=== PATIENT | male | born 1965 | race Caucasian/White ===

== ENCOUNTER → 2016-09-23 | Outpatient (CLI) | payer OTHER ==
--- NOTE | 2016-09-23 17:07 | XR ---
Lumbar spine with flexion-extension views 5 views of the lumbar spine Comparison to prior exam 30 July 2014 There is multilevel spondylosis. Loss of disc height present L3-4, L2-3 with associated spondylosis. Lumbar vertebral bodies show preserved height and alignment. Sclerosis present in the posterior eleme nts. No significant listhesis on flexion and extension views. Vascular calcifications present within the aorta. IMPRESSION: Degenerative disc disease and facet arthropathy.
== END | disposition home or self-care (01) ==
LOC: RADXRMAIN 15:26
PROVIDERS: ATTEND Psychiatry & Neurology Pain Medicine
DX: M51.36 Other intervertebral disc degeneration, lumbar region (principal); M46.86 Other specified inflammatory spondylopathies, lumbar region
CPT/HCPCS: 72114

== ENCOUNTER → 2016-09-23 | Outpatient (CLI) | payer OTHER ==
--- NOTE | 2016-09-24 10:39 | MR ---
EXAMINATION TYPE: MR lumbar spine wo con DATE OF EXAM: 09/23/2016 9:33 PM COMPARISON: NONE HISTORY: LBP, numbness/pain down rt leg x 4 years, no trauma/surgery TECHNIQUE: Multiplanar, multisequence images of the lumbar spine were acquired. L1-L2: Normal disc appearance without desiccation. No herniation, protrusion or disc bulging. No ca nal stenosis is present. Foramina are patent bilaterally. L2-L3: Circumferential posterior extension of endplate disc complex extends to cause some minimal for aminal encroachment, there is anterior mass effect on the thecal sac, only mild central stenosis. L3-L4: Posterior extension of endplate disc complex results in some mild to moderate central canal st enosis, circumferential extension of endplate disc complex encroaches on the neural foramina greater on the right likely contributed by scoliosis. There is facet arthropathy change. L4-L5: Broad-based posterior disc bulge causes anterior mass effect on the thecal sac. Circumferentia l extension of endplate disc complex encroaches somewhat on the foramina. There is some mild facet ar thropathy. No central stenosis. L5-S1: There is a broad-based posterior disc bulge causing contact the anterior thecal sac, circumfer ential extension of endplate disc complex encroaches mildly on the foramina. No significant central s tenosis Lumbar segments are intact. No paraspinal masses are identified. Conus medullaris has a normal appe arance. Lumbar vertebral bodies show preserved height and alignment. Loss of disc height and signal p resent at L2-3, L3-4, there is endplate discogenic marrow signal change, spondylosis. There is a spin al curvature. Minute cortical cyst associated with the left kidney. IMPRESSION: Spinal curvature, degenerative disc disease and facet arthropathy as described. Spinal stenosis great est at L3-4. Correlate with plain film prior to any intervention
== END | disposition home or self-care (01) ==
LOC: RADMRIMAIN 20:37
PROVIDERS: ATTEND Psychiatry & Neurology Pain Medicine
DX: M48.06 Spinal stenosis, lumbar region (principal); M51.36 Other intervertebral disc degeneration, lumbar region; M46.96 Unspecified inflammatory spondylopathy, lumbar region; M43.8X6 Other specified deforming dorsopathies, lumbar region
CPT/HCPCS: 72114; 72148

== ENCOUNTER → 2021-03-13 | Outpatient (CLI) | payer OTHER | END | disposition home or self-care (01) | LOC: LABPAT 10:37 | PROVIDERS: ATTEND Orthopaedic Surgery | DX: Z53.9 Procedure and treatment not carried out, unspecified reason (principal) ==

== ENCOUNTER → 2021-03-17 | Outpatient (CLI) | payer OTHER ==
[2021-03-17 10:52] LABS: Basophils # (A) 0.1 k/uL (0-0.2); Basophils % (A) 1 %; Eosinophils # (A) 0.4 k/uL (0-0.7); Eosinophils % (A) 3 %; HCT 49.1 % (39.0-53.0); Lymphocytes # (A) 3.5 k/uL (1.0-4.8); Lymphocytes % (A) 28 %; MCH 31.5 pg (25.0-35.0); MCHC 32.5 g/dL (31.0-37.0); MCV 96.9 fL (80.0-100.0); Mean Platelet Volume 7.2; Monocytes # (A) 0.5 k/uL (0-1.0); Monocytes % (A) 4 %; Neutrophils % (A) 64 %; Platelet Count 316 k/uL (150-450); RBC 5.07 m/uL (4.30-5.90); RDW 13.4 % (11.5-15.5); WBC 12.6 k/uL (3.8-10.6)
[2021-03-17 11:02] LABS: Potassium 4.4 mmol/L (3.5-5.1)
[2021-03-17 11:13] LABS: INR 0.9 (<1.2); Prothrombin Time 9.5 sec (9.0-12.0)
== END ==
LOC: PAT 09:54
PROVIDERS: ATTEND Orthopaedic Surgery
DX: M48.061 Spinal stenosis, lumbar region without neurogenic claudication (principal); M47.816 Spondylosis without myelopathy or radiculopathy, lumbar region; F17.200 Nicotine dependence, unspecified, uncomplicated
CPT/HCPCS: 80051; 85025; 85610

== ENCOUNTER 2021-03-18 05:48 | Inpatient (IN) | payer OTHER ==
[2021-03-13 12:02] VITALS: BMI 27.6
[~2021-03-18 05:48] MED LIST: ACETAMINOPHEN TAB 500 MG TAB PO PRN; DEXAMETHASONE SOD PHOSPHATE 4 MG/ML 1 ML VIAL IV ONE; GABAPENTIN 300 MG CAP PO PRN; ONDANSETRON 4 MG/2 ML VIAL IVP ONE; ONDANSETRON 4 MG/2 ML VIAL IVP PRN; TRANEXAMIC ACID 1,000 MG in SODIUM CHLORIDE 0.9% 100 ML IVPB PRN
--- NOTE | 2021-03-18 06:00 | P.HPOR ---
History of Present Illness H&P Date: 03/03/21 Chief Complaint: Low back pain, LE pain and weakness HISTORY: Xrays No new xrays taken today Trauma or injury No Work-Related No Pain description aching, sharp. Location posterior diffuse Activity Modification yes , unable to stand or weightbear for extended periods of time. Hand Dominance right DOI: Acute on chronic, no injury or trauma. DOS: None TREATMENTS COMPLETED: 6 weeks of PT completed? Yes How many sessions? 8 Did it help? No Physician directed home exercise completed? yes , did not see improvements regarding his symptoms. Medications yes List: [place], Flexeril without improvements. Alternative interventions Chiropractic?: No Brace: No Injections Yes (lumbar DAVID) How many? 2 Did they help? No RFA: No SUBJECTIVE: Today Mr. Jane presents to the office for a pre-operative evaluation to review his physical exam and go over the proposed procedure. Regarding his symptoms, he notes that they have not changed since the time of the last appointment. His symptoms are quite severe and limiting his daily functionality. He presents to the office without the use of any ambulatory aides. HPI: Mr. Jane was last seen on 01/31/2021 regarding his lumbar back. Since the time of his previous appointment on 01/03/2021 the patient noted that he has done PT and home exercises without improvement to his symptoms. He stated that his symptoms have not improved since his last appointment. Along with this he stated that he has severe sleep disturbances due to the severity of his symptoms. The patient has failed all conservative treatments at this time and would like to discuss scheduling the surgery discussed at the prior appointment. Patient notes that the has stopped smoking after his last appointment. Previously, Mr. Jane was last seen on 01/03/2021 regarding his low back. He noted that there was no prior injury to indicate an exact onset of his pain, rather it has gradually worsened over the last 17 years. His pain is primarily located along the right lateral side of his lower back and does note pain and numbness radiating down into his right lower extremity. His pain is quite severe and he is unable to completely many of his daily activities. Patient has seen Dr. Marin for his low back pain previously and has done several intralaminar injections in both the lumbar back and cervical neck regions. These injections, he notes, have waned in effectiveness over time and the patient reports that they are no longer effective. Of note the patient does take Motrin for pain management with no improvement to his symptoms. Patient does report that he is a pack a day smoker. Otherwise he denies having bowel issues or incontinence. He is otherwise doing well. Along with the patients low back pain he notes that he does have significant neck pain as well. This has been ongoing for as long as the back pain but he does not that it is not as severe. Regardless, this pain has aslo been managed previously by Dr. Alonso and the patient does report having injections previously. Patient notes difficulty with sleeping due to his neck pain. Patient doesn't report any pain, numbness, or tingling radiating down into the upper extremities bilaterally. The patients' past social, medical, family, surgical history, as well as review of systems, have been reviewed. Please refer to the Neurosurgery History and Physical form that has been scanned in to our electronic medical record system. Past Medical History Past Medical History: GERD/Reflux, Hyperlipidemia, Hypertension, Seizure Disorder Additional Past Medical History / Comment(s): states "has been off b/p,cholesterol,dilantin medication for a year",last seizure "3 or 5 years ago" History of Any Multi-Drug Resistant Organisms: None Reported Additional Past Surgical History / Comment(s): knee surgery Past Anesthesia/Blood Transfusion Reactions: No Reported Reaction Smoking Status: Former smoker - Past Family History Mother Family Medical History: No Reported History Father Family Medical History: Cancer Additional Family Medical History / Comment(s): lung CA Medications and Allergies Home Medications Medication Instructions Recorded Confirmed Type Acetaminophen [Tylenol Extra 500 - 1,000 mg PO Q6H PRN 03/13/21 03/13/21 History Strength] Allergies Allergy/AdvReac Type Severity Reaction Status Date / Time No Known Allergies Allergy Verified 03/13/21 11:54 Physical Examination Osteopathic Statement: *. No significant issues noted on an osteopathic structural exam other than those noted in the History and Physical/Consult. PHYSICAL EXAMINATION: General: Awake, alert, appropriate for age, in no acute distress. HEENT: No unusual neck masses around region of lateral neck triangle, thyroid, supraclavicular groove Heart: Regular rate and rhythm, normal S1, S2 and no murmur/gallop. Lungs: Clear to auscultation bilaterally with no use of accessory muscles. Extremities: Skin warm and dry without acute lesions, coloration, temperature, skin intact, no tenderness or erythema Integument: Hairy patches: Absent Dorsal skin dimples: Absent Cafe au lait spots: Absent Surgical incisions: No Palpation: Please see Pain drawing on Intake sheet for further detail. Midline spinal tenderness: No E6 Paralumbar tenderness: yes E6 Parathoracic tenderness: yes E6 Buttocks tenderness: yes E6 Special findings: No POSTURAL and MUSCULO-SKELETAL EVALUATION: Coronal Balance: NEUTRAL Recumbent testing: Patient is able to lay flat on back Sagittal Balance: Positive Shoulder Profile: LEVEL Pelvic Girdle: LEVEL Neck ROM: UNRESTRICTED Lumbar ROM: UNRESTRICTED Shoulder ROM: Symmetrical Hip ROM: Symmetrical Knee ROM: Symmetrical Hands: Normal appearance, symmetrical Feet: Normal appearance, Symmetrical VASCULAR STATUS : LEFT RIGHT Wrist Pulses INTACT INTACT Pedal Pulses (Dors. pedis & post.tibialis) INTACT INTACT Color NORMAL NORMAL Edema Absent Absent NEUROLOGIC EXAMINATION: Mental Status:Awake and alert, fully oriented, with normal attention, concentration and memory, and fluent, appropriate speech. Cranial Nerves: I: Olfactory not tested. II: Visual acuity normal, no visual field deficit noted with confrontation. III,IV: Normal pupillary reflexes & intact extraocular movements without nystagmus. V,: Intact symmetrical facial sensation. VII: Intact symmetrical facial motor movement VIII: Hearing intact. IX,X: Intact gag, swallow, & normal voice. XI: Sternocleidomastoid, trapezius function intact. XII: Tongue midline with normal movements. L'hermitte's Sign: Negative / absent Spurling'Sign: Absent bilaterally. Cubital percussion test: Absent bilaterally. Basil-Tinel sign - Carpal region: Absent bilaterally. Straight Leg Raising: Absent bilaterally. Crossed straight leg raise: negative O8 MOTOR EXAM (0-5/5, N/T) STRENGTH RIGHT LEFT Shoulder Abd (not part of the MANAV score) 5 5 Elbow Flexors 5 5 Elbow Extensor 5 5 Wrist Dorsiflexors 5 5 Finger Abductor 5 5 Party Plan Selling Distributor 5 5 Hip Flexor (Not part of MANAV Motor score) 5 5 Knee Flexor 4+ 4+ Knee Extensor 4+ 5 Ankle dorsiflexor 5 5 Ankle plantarflexion 5 4+ Extensor hallucis 5 5 REFLEXES(0-4/2, NT) RIGHT LEFT Upper Extremities 2 2 Lower Extremities 2 2 Pathological Reflexes RIGHT LEFT Allan's Absent Absent Clonus Absent Absent Babinski Absent Absent # Indicates mechanical impairment Muscle appearance: Symmetrical, without signs of atrophy or dystrophy. Rectal Tone:Deferred Sensory system (0-4, N/T) Test type RU LOIS RL LL Joint-Position 2 2 2 2 Vibration 2 2 2 2 Pain & LT sense 2 2 2 2 Dermatomal Deficit: None None None None Gait and Functional Evaluation: Ambulatory aids: Independent Romberg's test: Intact bilaterally Toe heel walk / heel-toe walk intact while maintaining satisfactory balance? yes Squatting/straightening w/o assistance to a min of 60 degree knee flexion? yes Single leg stance: intact Trendelenburg sign negative bilaterally Hand and finger dexterity intact bilaterally? yes Disdiadochokinesis examination negative bilaterally? yes Results RADIOGRAPHIC STUDIES: XRay taken on 12/20/20 of Lumbar was reviewed by Dr. Marcus and indicates: multiple views of the lumbar spine reviewed demonstrate: - L2 through L3 4 spondylosis. L3 4 spondylosis is worse with disc desiccation retrolisthesis. There is facet arthrosis which is noted at these levels as well. The remaining disks and vertebral body heights are remaining maintained. Overall alignment is fairly well maintained except for these levels were there is flattening of the normal lumbar lordosis. Coronal balance is maintained. MRI L spine - There is L2 through L3 4 spondylosis with L3 for motor can play changes. Spondylosis at L3-L4 severe with severe disc collapse and retrolisthesis. There is moderate to severe stenosis at L3 4. There is moderate stenosis centrally as well as foraminally at L2-3. This is both present at these levels secondary to facet hypertrophy ligamental hypertrophy disc desiccation as well as spondylosis. No other fracture or dislocation is noted. Overall alignment is as mentioned above MRI of the cervical spine is reviewed as well: - There is severe cervical spondylosis from C4 to C6. There is retrolisthesis of C5 on C6 with severe stenosis in this area. The patient does have upper extremity radiculopathy however no myelomalacia is noted at this time. There is no other fracture dislocation occipital cervical C1 2 joints appear stable at this time. There is another disc bulge noted at that C3-C4 as well as C4-C5 however this does not cause significant stenosis. No other fracture dislocation or lesion noted - Labs Labs: Microbiology - Last 24 Hours (Table) 03/13/21 11:13 Nasal Screen MRSA/MSSA - Final Nasal Swab Staphylococcus aureus Assessment and Plan Assessment: 1. L2-L4 Spondylosis 2.L2-L4 Stenosis 3. C5-C7 Stenosis/Spondylosis 4. Lower extremity radiculopathy with weakness 5. Upper extremity radiculopathy bilateral 6. Neurogenic claudication Plan: Surgical Procedure Risk Review Abel Jane is a 55 year old male presenting for evaluation of gradual and continued onset of low back pain and lower extremity pain difficulty with ambulation weakness. It was my pleasure to have seen and examined Mr. Jane. In our visit today we have had a chance to go over subjective complaints, physical examination findings and treatments, including the natural course history without intervention and various interventional options. The imaging demonstrates severe spondylosis L2 to L4 with disc collapse as well as stenosis . On physical exam, Mr. Jane demonstrates difficulty with ambulation weakness in his lower extremities radiculopathy and tensioning signs . I explained to the patient that as his condition progresses it could cause continued symptoms worsening her progressive symptoms as well as continued pain . At this time, based on the patients imaging and physical exam, I recommend surgery in the form or a: L2 to L5 laminectomy with L3-L4 fusion . I discussed the risk and benefits of this procedure at length with Mr. Jane. The patient agreed to consider pursuing the procedure mentioned above. Plan: 1. L2 to L5 laminectomy with L3 to L4 fusion 2. Follow up with PCP for surgical clearance 3. Review of surgical risks and benefits as well as an educational packet on the proposed surgical procedure. Risks: All surgical procedures come with inherent risks, including those related to positioning, anesthesia, intraoperative findings, and postoperative complications. It is important to understand that surgery does not come with any guarantee of a successful outcome as complications and adverse events are always possible. The patient was given a handout in office today discussing the surgical procedure and risks associated with the intervention, both of which were discussed with the patient. These risks include but are not limited to the following: ? Experiencing same, different or even worse symptoms in back, neck, arms, or legs compared to before surgery. ? Requiring further surgery or other forms of treatment presently or at some time in the future at same or other levels of the intended spine surgery. ? On an extreme but fortunately relatively rare basis severe complication such as blindness, stroke, heart attack, temporary and/or permanent nerve injury, paralysis, coma, or may occur, sometimes without known explanation. ? Surgical complications may include but are not limited to risk of infection, fluid accumulation in the surgical dissection site, including a seroma or hematoma, that requires additional surgery, wound drainage, bleeding, new numbness or weakness, vision changes/loss, spinal fluid leakage, non-healing and/or infected incision, headaches, difficulty or inability to swallow, hoarseness, hemopneumothorax, pneumothorax, impotence, retrograde ejaculation, vaginal dryness; injury to nerves, spinal cord, blood vessels, lymphatics or other vital organs (i.e., bowel injury, injury to the great vessels); heterotopic bone formation; complications related to the hardware such as screws, rods, cages including misplaced hardware, device failure, instrumenta tion at the wrong spine level, hardware fracture/breakage, or hardware loosening; vertebral failure of the spinal column above or below the newly placed hardware; retained surgical instrumentations or devices and the need for further surgery. ? Medical risks of the planned spine surgery include but are not limited to generalized Infections to the whole body or local areas outside of the surgical site (sepsis), heart attack, bleeding, anaphylaxis, meningitis, seizure, epilepsy, hearing loss, burn hull, laceration of the head or other areas of the body, bruising, hypersensitivity of the skin, bladder over distension; allergic reaction; shoulder injury related to positioning; fat, blood and air clots to other areas of the body like heart, lungs, brain; failure of internal organs s uch as lungs, kidneys, liver and excessive bleeding. If blood transfusions are necessary, note that transfusions may cause intolerance reactions such as anaphylaxis or other complex reactions. Despite best efforts, the results of spine surgery might not heal in terms of bone, soft tissues such as skin, fascia, ligaments, and joints. Additionally, in order to achieve best possible results, spine surgery may be carried out beyond the initially planned levels and involve decompression, fusion including insertion of hardware at levels other than the original intended area of surgical interest change some portions of the procedure in order to ensure the best possible outcomes. With spine surgery and spinal fusion, there are different off label uses of instrumentation (devices, implants and hardware) as well as biological substances (bone morphogenic proteins, demineralized bone matrix) as well as using extra bone from allograft sources (i.e. cadaver bone) or autograft (iliac crest bone, ribs, or the spine itself). The patient has been given information about these practices and their inherent risks and benefits. [facility] Physician Assistants are medically trained surgical providers who function in the outpatient, inpatient, and operating room setting under the direct supervision of the attending surgeon.They assist in the operating room with direct supervision of the attending surgeons. The patient has had a chance to review all the listed information, has been given print outs detailing this information, and has had all his/her questions answered to their satisfaction. It was my pleasure to have seen and examined Mr. Jane. In our visit today we have had a chance to go over my understanding of our patient's current condition, the natural course history without intervention and various interventional options. Questions were invited and answered, and the patient wishes to proceed as outlined above. I have seen and examined the patient for 25 minutes and we have spent more than 50% of the time in repeat and detailed counseling about the patient's condition, its natural course history with out and as much as can be predicted with surgery and re-review of various surgical treatment options. In conclusion,Mr. Jane and his spouse/partner requested we proceed with the above suggested surgery and are willing to accept risks and limitations of the suggested surgery as nature of the disease process and our best attempts at treatment for the condition. In our visit today Mr. Jane and I have had a chance to go over my understandi ng of the patient's current condition, the natural course history without intervention and various interventional options. Questions were invited and answered, and the patient wishes to proceed as outlined above. I will be sure to keep you updated afterMr. Jane returns here for further follow-up. Thank you again for your referral. Please do not hesitate to contact me if you have any further questions. Signed and authenticated by: Vishnu Singh [facility] [address] [place] [address] [place] [address] [place] [address] This message is confidential, intended only for the named recipient(s) and may contain information that is privileged or exempt from disclosure under applicable law. If you are not the intended recipient(s), you are notified that the dissemination, distribution or copying of this information is strictly prohibited. If you received this message in error, please notify the sender then delete this message. Patient verbalizes understanding of the information discussed.
[2021-03-18] MEDS ORDERED: LACTATED RINGERS 1,000 ML IV ONE ×3 (06:49→11:01)
[2021-03-18] MEDS: LACTATED RINGERS 1,000 ML IV SCH ×2 (06:49→17:48)
[2021-03-18] MEDS ORDERED: HYDROmorphone 0.5 MG/0.5 ML SYRINGE IVP PRN ×2 (07:00→12:25)
[2021-03-18] MEDS ORDERED: fentaNYL (PF) 50 MCG/ML 2 ML AMP ONE (07:33)
[2021-03-18] MEDS ORDERED: MIDAZOLAM 2 MG/2 ML VIAL ONE (07:33)
[2021-03-18] MEDS ORDERED: TRANEXAMIC ACID 1,000 MG/10 ML VIAL ONE (07:33)
[2021-03-18] MEDS ORDERED: NEOSTIGMINE 1 MG/ML 10 ML VIAL ONE (07:33)
[2021-03-18] MEDS ORDERED: LIDOCAINE 1% INJ 10MG/ML (20 ML MDV) ONE (07:33)
[2021-03-18] MEDS ORDERED: ceFAZolin 1,000 MG VIAL ONE (07:33)
[2021-03-18] MEDS ORDERED: GLYCOPYRROLATE 0.2 MG/ML 2 ML VIAL ONE (07:33)
[2021-03-18] MEDS ORDERED: PHENYLEPHRINE-0.9% NACL SYG 1,000 MCG/10 ML SYRINGE ONE (07:33)
[2021-03-18] MEDS ORDERED: SODIUM CHLORIDE 0.9% 100 ML BAG ONE ×2 (07:33)
[2021-03-18] MEDS ORDERED: ROCURONIUM 10 MG/ML (5 ML VIAL) IV ONE (07:33)
[2021-03-18] MEDS ORDERED: PROPOFOL 10 MG/ML 20 ML VIAL IV ONE (07:33)
[2021-03-18] MEDS ORDERED: SUCCINYLCHOLINE CHLORIDE 100 MG/5 ML SYR IV ONE (07:33)
[2021-03-18] MEDS ORDERED: GELATIN SPONGE,ABSORB (SMALL) 1 EACH SPONGE MISCELLANE ONE (08:19)
[2021-03-18] MEDS ORDERED: THROMBIN (BOVINE) 5,000 UNIT VIAL TOPICAL ONE (08:20)
[2021-03-18] MEDS ORDERED: BUPIVACAINE (PF) 0.25% 30 ML VIAL SQ ONE (08:20)
[2021-03-18] MEDS ORDERED: VANCOMYCIN 1,000 MG VIAL MISCELLANE ONE (11:36)
--- NOTE | 2021-03-18 12:08 | XR ---
Fluoroscopy HISTORY: MR fusion 42 seconds fluoroscopy time supplied to the referring clinician. 13 intraoperativ e C-arm images document the procedure. See dictated report from orthopedic surgery.
[2021-03-18] MEDS ORDERED: NA PHOS,M-B/NA PHOS,DI-BA 133 ML ENEMA RECTAL PRN (12:25)
[2021-03-18] MEDS ORDERED: SENNOSIDES-DOCUSATE SODIUM 1 EACH TAB PO PRN (12:25)
[2021-03-18] MEDS ORDERED: ONDANSETRON 4 MG/2 ML VIAL IVP PRN (12:25)
[2021-03-18] MEDS ORDERED: MAGNESIUM HYDROXIDE 2,400 MG/10 ML CUP PO PRN (12:25)
--- NOTE | 2021-03-18 12:31 | P.PN ---
Progress Note - Text Progress Note Date: 03/18/21 Brief Post Op: Surgeon: Benjamin Assist: Branch Pre op dx; severe stenosis L2 L5 with L3-L4 spondylosis and collapse Post op dx: Same Procedure: L2 to L5 decompressive laminectomy L3-L4 posterior lateral and interbody fusion Anesthesia: GETA EBL: 350 Ml Fluids: 1500 UO: 400 Dispo: Stable to PACU Post op Plan: Post operative noncontrasted CT scan Encourage ambulation IS 10x/hr Teds/SCDs Pain control Obtain LSO brace Record Drain output
[2021-03-18] MEDS ORDERED: diphenhydrAMINE 50 MG/ML 1 ML VIAL ONE (13:09)
[2021-03-18] MEDS ORDERED: diphenhydrAMINE 50 MG/ML 1 ML VIAL IVP ONE (13:13)
[2021-03-18] MEDS: ACETAMINOPHEN TAB 500 MG TAB PO SCH ×2 (17:59→23:20)
--- NOTE | 2021-03-18 18:24 | CT ---
EXAMINATION TYPE: CT lumbar spine wo con DATE OF EXAM: 03/18/2021 COMPARISON: MRI 01/04/2020 HISTORY: post-op lumbar sx CT DLP: 875 mGycm CONTRAST: None TECHNIQUE: CT of the lumbar spine is performed on a spiral scan at 3 mm thick sections. Reconstructed images are performed in the coronal and sagittal planes. FINDINGS: Postsurgical changes are evident with extensive subcutaneous emphysema present. Laminectomy has been performed L3 and L4. Disc spacers placed L3-4. T12-L1: No focal disc herniation or significant disc bulge is evident. No spinal canal stenosis or neural foraminal stenosis is present. L1-L2: No focal disc herniation or significant disc bulge is evident. No spinal canal stenosis or n eural foraminal stenosis is present L2-L3: Endplate changes and mild anterior thecal sac compression. No AP spinal canal stenosis is evid ent. L3-L4: Beam hardening artifact limits evaluation of the canal at this level. L4-L5: Broad-based disc bulge is present with moderate anterior thecal sac compression. Ligamentum fl avum laxity may be present facet hypertrophy is present. Moderate to severe bilateral foraminal steno sis remains present. L5-S1: No focal disc herniation or significant disc bulge is evident. No spinal canal stenosis or n eural foraminal stenosis is present Vertebral alignment appears normal. IMPRESSION: 1. Postsurgical changes with subcutaneous emphysema 2. Broad-based disc bulge L4-5 with moderate anterior thecal sac compression. 3. L3-4 level cannot be well evaluated due to being hardening artifact
[2021-03-19] MEDS: ACETAMINOPHEN TAB 500 MG TAB PO SCH ×4 (05:34→23:23)
[2021-03-19] MEDS: LACTATED RINGERS 1,000 ML IV SCH (05:41)
--- NOTE | 2021-03-19 06:19 | CONS ---
CONSULTATION Status post lumbar laminectomy. Having no chest pain, shortness of breath, lightheaded, dizziness or syncope. 14 point review of systems otherwise negative. FAMILY HISTORY: Mother negative. Father with lung cancer. MEDICATIONS: Home medicines: Acetaminophen. ALLERGIES: Negative. ASSESSMENT: 1. L2 to 4 stenosis, spondylosis. 2. C5-C7 stenosis, spondylosis. 3. Lower extremity radiculopathy. 4. Upper extremity bilateral radiculopathy. 5. Neurogenic claudication. Continue current home medicines. Pain control. Monitor breathing. Vital signs stable postop. Condition stable. MMODL / IJN: [id number] /
[2021-03-19 07:21] LABS: Basophils # (A) 0.1 k/uL (0-0.2); Basophils % (A) 0 %; Eosinophils % (A) 0 %; HCT 42.9 % (39.0-53.0); HGB 13.9 gm/dL (13.0-17.5); Lymphocytes # (A) 4.4 k/uL (1.0-4.8); Lymphocytes % (A) 22 %; MCH 30.9 pg (25.0-35.0); MCHC 32.5 g/dL (31.0-37.0); MCV 95.2 fL (80.0-100.0); Mean Platelet Volume 7.5; Monocytes # (A) 0.9 k/uL (0-1.0); Monocytes % (A) 4 %; Neutrophils # (A) 14.8 k/uL (1.3-7.7); Neutrophils % (A) 72 %; Platelet Count 279 k/uL (150-450); RBC 4.51 m/uL (4.30-5.90); RDW 13.3 % (11.5-15.5); WBC 20.5 k/uL (3.8-10.6)
[2021-03-19] MEDS: HYDROmorphone 1 MG/ML 1 ML SYRINGE IVP PRN ×5 (07:58→20:48)
--- NOTE | 2021-03-19 08:43 | P.PN ---
Subjective Progress Note Date: 03/19/21 Patient seen and examined this morning is doing okay. He is having some pain overnight. He denies any numbness or tingling in his lower extremities he states is able move his legs better it seems after surgery. He denies any fevers chills or some breath or chest pain. No headache. Daly is still in p lace at this time. Objective - Vital Signs Vital signs: Vital Signs Temp 98.3 F 03/19/21 04:45 Pulse 64 03/19/21 04:45 Resp 16 03/19/21 04:45 BP 146/77 03/19/21 04:45 Pulse Ox 96 03/19/21 04:45 Intake & Output 03/18/21 03/19/21 03/19/21 18:59 06:59 18:59 Intake Total 3150 290 Output Total 600 3800 Balance 2550 -3510 Intake: IV 3100 Intake, IV Titration 50 290 Amount Lactated Ringers 1,000 ml 240 @ 0 mls/hr IV .[facility] Rx#:[id number] ceFAZolin 2 gm In Sodium 50 50 Chloride 0.9% 50 ml @ 100 mls/hr IVPB Q8HR [facility] Rx# :[id number] Output: Urine 250 3800 Estimated Blood Loss 350 Other: Voiding Method Indwelling Catheter - Exam Patient is alert and oriented 3 appears well-nourished well-hydrated is in no acute distress. They does not appear septic. On exam the patient has no tenderness to palpation of her thoracic or lumbar spine. There is no edema or ballottement sign. Lower extremities with 4+ out of 5 strength in all major muscle groups secondary to recent surgery no focal deficits and improved strength overall Upper extremities show 5/5 strength in all major muscle groups. There is FROM that is painless of the b/l UE and LE in all major joints. They are intact to light touch sensation in L2 to S1 nerve distribution. Patient has palpable dorsalis pedis was posterior tibial pulses. Compartments are soft and compressible. Patient shows a negative Homans, Allan's, negative Babinski's negative clonus bilaterally. negative straight leg raise bilaterally. No tensioning signs. Cranial nerves II through XII are grossly intact. Overall alignment is well-maintained in the sagittal coronal planes. Incision is clean dry and intact at this time Drain had minimal output however needed to be stripped this was done at bedside and then had decent output. - Labs CBC & Chem 7: 03/19/21 06:33 Labs: Abnormal Lab Results - Last 24 Hours (Table) 03/19/21 Range/Units 06:33 WBC 20.5 H (3.8-10.6) k/uL Neutrophils # 14.8 H (1.3-7.7) k/uL Assessment and Plan Assessment: 55-year-old male postop day 1 L2 to L5 decompression with L3-L4 fusion Neurogenic claudication Plan: -Appreciate vocational rehab consultant and team management. -Activity: Ambulate QID, OOB all meals, up and about, limit lifting bending twisting to less than 5 lbs. Use walker or cane if needed for stability. -Daily PT/OT, increase ambulation strength and balance. -Brace when up and about, not needed in bed or chair -Pain control: Adequate at this time -Meds: reviewed -GI ppx: senna, Miralax -DC rasmussen when up and about, bedside commode if needed -DVT PPX: OK to restart Heparin tonight -Hygiene: Shower today. Maintain dressing clean and dry. Meticulous cleaning after BMs away from incision site -Drains: Maintain for now. Record output -Encourage IS 10x/hr -Dispo: Pending
--- NOTE | 2021-03-19 09:45 | P.OP ---
Date of Procedure: 03/18/21 Preoperative Diagnosis: 1. Severe L3-4 Spondylosis with severe stenosis 2.L2-L5 Stenosis severe 3. Lower extremity radiculopathy with weakness 4. Neurogenic claudication Postoperative Diagnosis: 1. Severe L3-4 Spondylosis with severe stenosis 2.L2-L5 Stenosis severe 3. Lower extremity radiculopathy with weakness 4. Neurogenic claudication Procedure(s) Performed: 1. L2 midline sparing bilateral laminotomy, foraminotomy and partial medial f acetectomy 2. L3-4 complete laminectomy bilateral facetectomy, and foraminotomy 3. L3-4 intradiscal osteotomy (3 column) for deformity correction 4. L3-4 Posteriolateral interbody fusion 5. L3-4 posterior nonsegmental instrumentation 6. Stereotactic computer-assisted (navigational) procedure; Spinal ([id number]) Implants: Gurmeet Screws Globus Sable Cage x1 7-14 mm 15 deg lordotic Bio4 Vesuvius allograft and DBM regional Autograft bone Theracell DBM Anesthesia: GETA Surgeon: Vishnu Alexander Diamond Mounter #1: Jose Elias Walker (Was present for the entire case and necessary to the case) Estimated Blood Loss (ml): 350 IV fluids (ml): 2,000 Urine output (ml): 500 Pathology: none sent Condition: stable Disposition: PACU Indications for Procedure: 55 yo male with severe low back pain. LE pain and weakness with progressive symptoms as well as neurogenic claudication presented for evaluation. He was found to have severe stenosis from L2-L5 with severe spondylosis of L3-4 and collapse of L3-4 causing severe stenosis. He attempted PT, PD-HEP as well as medications OT and RX with no help. Injections made him worse and more symptomatic and so we discussed surgical options as he was showing progressive symptoms as well as severe pathology. He agreed to the pursuit of surgery. Pt was s/e in pre op area all protocols followed. Consent was confirmed, pt NPO, abx hanging. Site was marked. All questions answered. Pt ready and willing to proceed with procedure. Description of Procedure: The patient was seen and examined in the preoperative area. All preoperative protocols were followed. Informed consent was obtained risks and benefits of the procedure were discussed at length. Risks including bleeding infection damage to the surrounding tissue and risk of reoperation were discussed with the patient. Risk of anesthesia up to and including was a discussed with the patient. These are outlined in the risk review. They were willing to accept these risks and all of the risks of surgery. The patient was given a weight- based dose of antibiotics in the form of 2 g Ancef IVPB. The patient was seen and evaluated by the anesthesia team who deemed them fit for surgery. The site was marked, the patient was willing to proceed with the procedure. The patient was transferred to the operative suite by the Department of anesthesia. They were then drifted off to sleep by the department anesthesia and GETA Performed. The patient tolerated this well. Kauffman catheter was placed by nursing staff, atraumatically. Once confirmation of lines and ventilation the patient was transferred to a prone Mehran Harley table very carefully. All bony prominences including wrists, elbows, axilla, chest, hips, and thighs, and feet were padded very well. Special attention was paid to the genitalia and these were padded accordingly. SCDs were placed on bilateral lower extremities and were connected. Arms were well padded and placed on arm boards up and out in the 90/90 position. Once in position, again we confirmed good ventilation capabilities and that lines were running appropriately. The patient's lumbar spine was then exposed. 1010s were placed outlining the incision site. Standard alcohol was used to clean the incision site and allowed to dry. C-arm was used to biomark the patient and confirm level for incision which was marked with a skin marker. Operative briefing was performed with all teams and everyone in agreement to proceed. The patient was then prepped and draped in a normal sterile fashion. Timeout was then performed and all parties were in agreement with the procedure to be performed. Remote area to the incision proximally was infiltrated with 1% lidocaine with core percent Marcaine without epinephrine. 30 mL. Incision was then made over the previously by marked area and taken down to the lumbar fascia which was identified and cleaned with a Luis. Then performed a bilateral midline sparing dissection subperiosteally down over the lamina of L2 through L5. Once this was exposed and then exposed the facet joints and TPs at L3 and L4. TPs were decorticated at these levels. Meticulous hemostasis was performed. Then placed a spinous processes clamp and L2 for the People [employer] Remember navigation tracker which was then secured into place. We then covered and performed a sterile 3-D C-arm spin of the surgical field. Once this was obtained to confirm that the images were of good quality and of the correct levels. We then confirmed the accuracy of the navigation with a probe. Once this was confirmed a navigated bur was used to make a high-level holes and L3 pedicle L4 pedicle bilaterally then used an awl tap which was navigated to tap and all the pedicles at L3 and L4 on the left side we then placed screws that were measured off of this. Navigated screws were then placed on the left-hand side followed by the right hand side in a similar fashion. In between each step we did probe the pedicle to make sure that we are within the 4 castillo and there was no medial breach and this was true of all pedicles. Once all screws were place we then tested them with intraoperative neuro monitoring probe and all tested above 20 mA. We then turned our attention to the decompression. At L2 and performed a midline sparing bilateral laminotomy and partial medial facetectomy and foraminotomies by performing to the inverted U cuts followed by an elongated J cut inferiorly as we are going to remove the entire lamina of L3 and L4 to allow for decompression in this area due to severe stenosis. This was performed bilaterally at L2 followed by L3 were complete laminectomy was performed as well as L4. We then performed J cuts into the superior portion of L5 to decompress to L5 and effectively the top of L5-S1. At L5 this was done in the midline sparing approach. Once the midline was off and performed complete facetectomy f oraminotomy of L3-L4 removing completely the IEP of L3 and the SAP of L4. Once this was accomplished meticulous hemostasis was performed. We then decompressed the exiting nerve roots at L3-L4 completely as well as access the disc space bilaterally. We then performed intradiscal osteotomy 3 column osteotomy of L3- L4 with quarter-inch osteotome this was inserted under fluoroscopic guidance in the lateral position. We protected the dura as well as the exiting nerve root during this process. We then cleaned the disc space with a pituitary rongeur. Skull will down biter was then used to push disc material into the space and removed with a pituitary. We then performed sequential shaving within the disc bilaterally up to a size 10 which showed good fit on lateral view. Went to a AP view which showed good midline position. We then cleaned the endplates of any cartilage and scraped the bone to allow for good bleeding surface. We then placed a retractor within the pedicle screws on the right-hand side to allow for distraction in the area and correction of the deformity. We then placed the cage after prepacking the anterior space with autograft and allograft. The cages then placed and expanded under lateral fluoroscopy showing good lordosis and good reduction. We then locked the cage in place. Any back filled it with autograft and allograft. Once it was post packed the inserters removed and x- rays taken cages in good position. We then thoroughly irrigated the area with 6 L of normal sterile saline. We then cleaned of any remainder bone fragments or edges of our laminectomy so that they were clean and smooth placed bone wax on open bone edges. We then placed Surgicel over the dura. There were no dural leaks hemostasis was achieved and then packed the posterior lateral gutters with a mixture of autograft allograft and bile 4. We then placed rods and setscrews. We performed slight distraction on the right-hand side to allow for deformity correction. Set screws and final tightened into place. We then placed vancomycin powder deep within the wound and placed a drain deep. We then performed a layered closure first within the lumbar fascia with #1 Vicryl in a fashion followed by 0 Vicryl in the deep subcu tissue followed by 2-0 Vicryl superficial subcu tissue followed by brijesh in the skin. Skin edges approximated very well. The drain was sewn in place. We then clean the wound with alcohol and dried it and dressed sterilely with an operative foam dressing drain sponge and Tegaderm. The patient was transferred back to his hospital bed atraumatically. Drain continued to hold suction and were in good position. Patient was then awakened and extubated by the department of anesthesia having tolerated the procedure very well with no complications. He was transferred to the postoperative care unit in stable condition.
[2021-03-19 10:50] LABS: African American GFR (CKD) 114.9 (60.0-200.0); Anion Gap 12.7 mmol/L (4.00-12.00); BUN/Creat Ratio 11.88 Ratio (12.00-20.00); Blood Urea Nitrogen 9.5 mg/dL (9.0-27.0); Carbon Dioxide 23.3 mmol/L (21.6-31.8); Non-African American GFR(CKD) 99.2 (60.0-200.0)
--- NOTE | 2021-03-20 00:17 | PN ---
PROGRESS NOTE 55-year-old white male status post L2, L4 spondylosis with lumbar surgery. She has less tingling in her lower legs. Lungs scattered wheeze. Cardiovascular S1, S2. Hematology negative Homans. Psych: Fair mood and affect. IMPRESSION: 1. Status post lumbar radiculopathy. 2. Lumbar stenosis with neuropathy improved. 3. Chronic obstructive pulmonary disease. 4. Hypertension. 5. Nicotine addiction. Pain is under good control. Follow up in next 24 to 48 hours for possible discharge or to rehab center, PT/OT. MIKA / SILVANON: [id number] /
[2021-03-20] MEDS: HYDROmorphone 1 MG/ML 1 ML SYRINGE IVP PRN ×2 (02:43→07:12)
[2021-03-20] MEDS: ACETAMINOPHEN TAB 500 MG TAB PO SCH ×4 (05:28→23:50)
[2021-03-20] MEDS: CYCLOBENZAPRINE 5 MG TAB PO PRN ×2 (07:12→19:28)
--- NOTE | 2021-03-20 11:58 | P.PN ---
<Jose Elias Walker M - Last Filed: 03/20/21 11:56> Subjective Progress Note Date: 03/20/21 Principal diagnosis: Status post L2-L5 decompression, L3-L4 fusion Patient was evaluated today at bedside, he is resting in his hospital bed. He is having some increasing pain today. He notes more discomfort in his right lower extremity than yesterday. He's done very minimal ambulation at this time. Therapy was able to get him up to the chair, he spent an extended period of time in a chair yesterday also. Urinary catheter is still in place, the surgical drain was also placed. He currently denies any headaches, lightheadedness, chest pain or shortness of breath Objective - Vital Signs Vital signs: Vital Signs Temp 99.1 F 03/20/21 05:00 Pulse 72 03/20/21 05:00 Resp 18 03/20/21 05:00 BP 119/71 03/20/21 05:00 Pulse Ox 93 L 03/20/21 05:00 Intake & Output 03/19/21 03/20/21 03/20/21 18:59 06:59 18:59 Intake Total 100 830 Output Total 1375 1850 Balance -1275 -1020 Intake: Intake, IV Titration 100 290 Amount Lactated Ringers 1,000 ml 240 @ 20 mls/hr IV .[facility] Rx#:[id number] ceFAZolin 2 gm In Sodium 100 50 Chloride 0.9% 50 ml @ 100 mls/hr IVPB Q8HR [facility] Rx# :[id number] Oral 540 Output: Drainage 75 100 Right Back 75 100 Urine 1300 1750 Other: Voiding Method Indwelling Catheter - Exam Gen: AOx3, NAD VSS stable at this time Integument: Postoperative dressing is in good position and condition. Drain is in good position and condition, according to nursing there was 100 mL of output Palpation: Mild tenderness with palpation to the midline and paraspinal region of the lumbar spine, no tenderness of the cervical or thoracic spine ROM: Full range of motion in all major muscle groups in the bilateral upper and lower extremities Sensory Exam: Senory exam to light touch is intact C5-T1 Senosry exam to light touch is intact L2-S1 Motor: 5/5 strength in bilateral upper extremities with shoulder abduction, forward elevation, elbow extension, elbow flexion, wrist extension, wrist flexion 4+/5 strength in the bilateral lower extremities with hip flexion, knee flexion, knee extension, plantar flexion, dorsiflexion, EHL, FHL Reflexes: Negative Nino's bilaterally Negative Babinski bilaterally Negative clonus bilaterally Special Test: Negative straight leg raise bilaterally - Labs CBC & Chem 7: 03/19/21 06:33 03/19/21 06:33 Assessment and Plan Assessment: Postoperative day #2 status post L2-L5 decompression, L3-L4 fusion Plan: Pain control, continue with current medications. Try to avoid IV narcotics unless severe pain is noted GI and DVT prophylaxis, Lovenox 40 mg subcu daily to be started today Wound care instructions, dressing will be left in place at this time. Treatment will also be left in place at this time, possible removal on 03/21/2021 Discussed with nursing will discontinue urinary catheter later today Activity level: Discussed with patient today that he needs to be out of bed more, this to include all meals, resting in a hospital chair and ambulating. Recommend use of the LSO brace when up and ambulating, also use the walker all times Continue work with physical therapy/occupational therapy Other medical physics researcher recommendations Further recommendations to follow Time with Patient: Less than 30 <Vishnu Alexander - Last Filed: 03/20/21 12:57> Subjective Principal diagnosis: Status post L2-L5 decompression, L3-L4 fusion Doing OK, still not moving as much as he should. Patient was evaluated today at bedside, he is resting in his hospital bed. He is having some increasing pain today. He notes more discomfort in his right lower extremity than yesterday. He's done very minimal ambulation at this time. Therapy was able to get him up to the chair, he spent an extended period of time in a chair yesterday also. Urinary catheter is still in place, the surgical drain was also placed. He currently denies any headaches, lightheadedness, chest pain or shortness of breath Objective - Vital Signs Vital signs: Vital Signs Temp 99.0 F 03/20/21 12:30 Pulse 67 03/20/21 12:30 Resp 18 03/20/21 12:30 BP 108/69 03/20/21 12:30 Pulse Ox 95 03/20/21 12:30 Intake & Output 03/19/21 03/20/21 03/20/21 18:59 06:59 18:59 Intake Total 100 830 Output Total 1375 1850 Balance -1275 -1020 Intake: Intake, IV Titration 100 290 Amount Lactated Ringers 1,000 ml 240 @ 20 mls/hr IV .[facility] Rx#:[id number] ceFAZolin 2 gm In Sodium 100 50 Chloride 0.9% 50 ml @ 100 mls/hr IVPB Q8HR [facility] Rx# :[id number] Oral 540 Output: Drainage 75 100 Right Back 75 100 Urine 1300 1750 Other: Voiding Method Indwelling Catheter - Labs CBC & Chem 7: 03/19/21 06:33 03/19/21 06:33 Assessment and Plan Plan: Maintain drain for today PT OT daily AmbulateQID DVT PPX Pain control Medical management appreciated Likely home tomorrow
[2021-03-20] MEDS: ENOXAPARIN 40 MG/0.4 ML SYRINGE SQ SCH (12:34)
[2021-03-20] MEDS: LACTATED RINGERS 1,000 ML IV SCH (16:53)
[2021-03-21] MEDS: CYCLOBENZAPRINE 5 MG TAB PO PRN ×3 (04:58→23:59)
[2021-03-21] MEDS: ACETAMINOPHEN TAB 500 MG TAB PO SCH ×3 (05:01→17:55)
[2021-03-21] MEDS: ENOXAPARIN 40 MG/0.4 ML SYRINGE SQ SCH (08:15)
--- NOTE | 2021-03-21 14:29 | P.PN ---
Subjective Progress Note Date: 03/21/21 Principal diagnosis: Status post L2-L5 decompression, L3-L4 fusion Patient was seen at bedside this morning resting comfortably sitting up in chair without LSO brace on. Patient says he is still in moderate amount of pain and does not feel that his radial home today. She says most the pain is actually coming from there was a drain is then and not the midline incision. Patient denies chest pain, fever, chest breath, nausea, change in vision, loss of bladder control. Patient denies any significant numbness/tingling. Objective - Vital Signs Vital signs: Vital Signs Temp 98.1 F 03/21/21 12:08 Pulse 85 03/21/21 12:08 Resp 17 03/21/21 12:08 BP 124/78 03/21/21 12:08 Pulse Ox 94 L 03/21/21 12:08 Intake & Output 03/20/21 03/21/21 03/21/21 18:59 06:59 18:59 Intake Total 440 590 Output Total 120 1100 Balance 320 -510 Intake: Intake, IV Titration 240 50 Amount Lactated Ringers 1,000 ml 240 @ 20 mls/hr IV .[facility] Rx#:[id number] ceFAZolin 2 gm In Sodium 50 Chloride 0.9% 50 ml @ 100 mls/hr IVPB Q8HR [facility] Rx# :[id number] Oral 200 540 Output: Drainage 30 100 Right Back 30 100 Urine 90 1000 Other: Voiding Method Indwelling Catheter Urinal Urinal # Voids 1 - Exam Focused Spine- foam tape was removed which was covering the SANTO drain. Stitch was cut with scissors and SANTO drain was removed. There was minimal serous drainage in the drain. 4 x 4 and Tegaderm was placed over the incision where the drain was in place. Maintain midline incision dressing was removed. Incision was clean, dry, intact. [place] are in good position and well aligned. Incision is healing well. Foam dressing was placed over main midline incision.. Patient does have some moderate tenderness to palpation over incision. Nontender to palpation throughout the rest exam. Neurovascular status intact. Capillary refill is below 3 seconds bilaterally in upper extremities. Radial pulses intact, bilaterally, 2+. Negative Homans bilaterally. Patient is able to wiggle toes in both feet bilaterally. - Labs CBC & Chem 7: 03/19/21 06:33 03/19/21 06:33 Assessment and Plan Assessment: Postoperative day #3 status post L2-L5 decompression, L3-L4 fusion Plan: 1. 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 Patient stable at bedside this morning. SANTO drain was removed. New optifoam dressing was placed over incision. Plan discharge home tomorrow with health services 2. Appreciate medical management 3. Pain management - oxycodone; Tylenol; Flexeril 4. DVT prophylaxis - Lovenox 5. GI prophylaxis - senna; magnesium hydroxide 6. PT/OT - weightbearing as tolerated. When up and about needs LSO brace on at all times 7. Discharge planning - plan for discharge home tomorrow with health services Time with Patient: Less than 30
[2021-03-21] MEDS: LACTATED RINGERS 1,000 ML IV SCH (16:26)
--- NOTE | 2021-03-21 16:38 | XR ---
EXAMINATION TYPE: XR chest 1V portable DATE OF EXAM: 03/21/2021 COMPARISON: Chest x-ray 04/05/2013 HISTORY: Hypoxia TECHNIQUE: Single frontal view of the chest is obtained. FINDINGS: Patient is rotated. There is no focal air space opacity, pleural effusion, or pneumothorax seen. The cardiac silhouette size is within normal limits. The osseous structures are intact. IMPRESSION: No acute process.
--- NOTE | 2021-03-21 17:59 | PN ---
PROGRESS NOTE DATE OF SERVICE: 03/20/2021 55-year-old white male who was admitted to the hospital status post lumbar surgery. He is having a lot of pain and numbness in his right leg that just started yesterday on 03/20/2021 for which possibly gabapentin will have to be ordered. He did not feel like he wanted to go home. There is a drain in the midline incision. No loss of bowel or bladder. Increased numbness in his right leg. Vital signs stable. Afebrile. Cardiovascular S1, S2. Lungs clear. GI soft. Psych: Sleepy, lethargic. White count 20.5. Postop day 3. L2-L5 decompression, L3-L4 fusion. Possibly add Neurontin. Monitor his white count. Standard surgical postop care. We will monitor his vital signs. So far, he is saturating 93 to 94% on room air, blood pressure 120s over 70s. He is afebrile at 98.7, pulse 60s. Respiratory 16 to 18. Possibly add Neurontin for his care. Otherwise continue current treatment. MMODL / IJN: [id number] /
[2021-03-21 21:28] LABS: Appearance,Urine Clear (Clear); Bilirubin,Urine Negative (Negative); Blood,Urine Negative (Negative); Color,Urine Yellow; Glucose,Urine (UA) Negative (Negative); Ketones,Urine 1+ (Negative); Leukocyte Esterase,Urine Negative (Negative); Nitrite,Urine Negative (Negative); PH, Urine 6.5 (5.0-8.0); Protein,Urine Negative (Negative); Specific Gravity,Urine 1.021 (1.001-1.035); Urobilinogen,Urine <2.0 mg/dL (<2.0)
[2021-03-22 04:08] VITALS: TEMP 98.4
[2021-03-22 04:53] VITALS: BP 118/72; PULSE 69; RESP 20
[2021-03-22] MEDS: ACETAMINOPHEN TAB 500 MG TAB PO SCH ×2 (05:22)
[2021-03-22] MEDS: ENOXAPARIN 40 MG/0.4 ML SYRINGE SQ SCH (08:29)
--- NOTE | 2021-03-22 09:59 | P.DS ---
Providers Date of admission: 03/18/21 05:48 Expected date of discharge: 03/22/21 Attending physician: Vishnu Alexander DO Consults: 03/18/21 12:29 Consult Physician Routine Consulting Provider: Reilly Hamilton Reason/Comments: Medical Management Do you want consulting provider notified?: Yes Primary care physician: Reilly Hamilton [facility] Course: Date of admission: 03/18/2021 Date of discharge: 03/22/2021 Admission diagnosis: 1. Severe L3-4 Spondylosis with severe stenosis 2.L2-L5 Stenosis severe 3. Lower extremity radiculopathy with weakness 4. Neurogenic claudication Discharge diagnosis: Same Attending physician: Dr. Alexander Surgical procedures: 1. L2 midline sparing bilateral laminotomy, foraminotomy and partial medial facetectomy 2. L3-4 complete laminectomy bilateral facetectomy, and foraminotomy 3. L3-4 intradiscal osteotomy (3 column) for deformity correction 4. L3-4 Posteriolateral interbody fusion 5. L3-4 posterior nonsegmental instrumentation 6. Stereotactic computer-assisted (navigational) procedure; Spinal (78339) Brief history: Patient is a 55-year-old male with a history of L3-4 spondylosis with severe stenosis; L2-L5 stenosis; lower extremity radiculopathy with weakness; neurogenic claudication. At this point patient has failed conservative treatment measures and has opted to proceed with a elective see surgical procedure above Hospital course: Details of patient's surgery can be found in operative report. Patient tolerated the procedure well and was subsequently transported to orthopedic floor. Patient's orthopeidc and medical care was provided daily. Patient had daily laboratory tests performed for evaluation of overall blood counts. Patient had daily physical therapy to include strengthening range of motion as well as education with walker ambulation. Patient was treated with Lovenox for their postoperative DVT prophylaxis during their inpatient stay. Patient was noted to have a relatively uneventful postoperative course. Patient reported satisfactory pain control with oral pain medications by postoperative day 4. Patient showed satisfactory progress with physical therapy. Patient moved steadily through the program and had no difficulty meeting the goals by postoperative day 4. Given patient's otherwise satisfactory course and having met physical therapy goals, plan is to discharge patient home on postoperative day 4. Discharge condition/disposition: Patient will be discharged home in stable condition. Discharge medications: Instructions are given on resumption of patient's normal daily medications per primary care recommendation, in addition patient will be prescribed Oxycodone HCl 5 mg q6h; Flexeril 5 mg TID; Acetaminophen 1,000 mg; D uricef 1 g QD; Senna 8.6 QD Spine Discharge and Recovery Instructions Medications: See medication list All medication refills should be obtained through your primary care doctor or your clinic spine surgeon. Please discuss prescription refills at your follow up appointment. Do not call the hospital for medication refills. Dressing: Leave your dressing in place for a total of 5 days post operatively. Then you may remove your dressing and leave open to air. Keep the area clean and if not able to keep area clean, then cover with sterile gauze and tape. Showering: You may shower 3 days after your procedure allowing soap and water to run over incision. Do not scrub. Do not soak. Blot dry. Follow up: Please confirm a follow up appointment with your surgeon 3 weeks post operatively. Please make an appointment to follow up with your PCP in 1-2 weeks after surgery for evaluation 3 phase, 3-week plan POST OP WEEKS 1-3 1. Lifting/carrying/pushing/pulling limited to less than 5 pounds. 2. Do not sit for longer than 15 minutes at one time. Get up and walk around. Prolonged sitting is NOT advised. If you lay down, see if you can tolerate laying down on you front (belly side) 3. Walk for periods of 15 minutes = 1 mile but no longer; do it multiple times times each day. 4. Ice your low back after activity. POST OP WEEKS 3-6 1. Lifting limited to less than 20 pounds. 2. Do not sit for longer than 30 minutes at a time. Frequently change positions. Use a sit-to stand workstation or take frequent breaks from sitting if you have returned to work. 3. Walk for 30 minutes each day. If possible, do these three or more times a day POST OP WEEKS 6+ At your 6-week appointment we will give you a physical therapy referral to focus on a core stabilization and strengthening program. You should also work on leg & buttock strengthening, hamstring & quadriceps stretching, and continue a low impact aerobic activity program such as swimming, walking, or riding a stationary bicycle. During the initial 6 weeks after your surgery, you are at the highest risk of re-injuring your spine. You should generally avoid BLTs (bending, lifting and twisting combination motions) and follow the above guidelines to reduce the chance of reinjury. You can anticipate post op appointments in our office at approximately 3 weeks and 6 weeks after your surgery. INCISION CARE: If your incision is not draining you do NOT need to cover it with a dressing. Keep your incision clean, dry and intact. In most cases, we apply skin glue, brijesh or sutures to the incision at the time of surgery. This will be like a crust or have the appearance of a scab and will fall off in time on its own. The stitches or brijesh need to be removed at 3 weeks post op appointment. You may begin to shower 3 days after surgery (this allows the glue to reza well). However, please avoid scrubbing the incision site or peeling off any of the skin glue. This will ensure optimal healing of your incision. Also, during this time avoid soaking the incision area in water - this includes swimming pools, hot tubs or baths. No ointments, lotions or oils on the incision until your surgeon allows. Leave brijesh, sutures or glue in place. Neurological dysfunction that comes on suddenly can also be a sign of a stroke. Below some common symptoms of a stroke are listed: B - balance difficulty such as sudden onset walking or leaning to one side - NEW E - eye problem such as sudden double vision or trouble seeing on one side - NEW F - Facial weakness or numbness on one side - NEW A - Arm or leg weakness or numbness on one side - NEW S - Slurred speech or difficulty with word finding - NEW T - Time is BRAIN! Call 911 as soon as you recognize these symptoms Diet: Consume a regular diet rich in vegetables and lean protein such as chicken or fish. You should consume in a ratio of approximately 20% fats|40% carbohydrates|40%protein. Vegetables, sweet potatoes, brown rice or quinoa are examples of good carbohydrates. Chips, white bread, cookies and sweets/sugar are examples of bad carbohydrates. Limit your bad carbs, go wild with good carbs. "Life's Simple 7" Guidelines as per [place] [employer] These will help you reclaim your life after surgery and operator helper in your recovery, keeping in mind your restrictions. (1) Get Active. Physical activity can help people lose weight, control high blood pressure and cholesterol, feel emotionally better, and sleep better. (2) Control Cholesterol. Avoid a diet high in saturated fat, trans fat, & cholesterol. Limit whole milk & cream, ice cream, butter, egg yolks, processed meats (like sausage and hot dogs), and fatty meats. Choose healthy foods that are low in saturated fat, trans fat and cholesterol which include: Fruits and vegetables, fiber rich grain products (like whole grain pasta and brown rice), lean meat such as chicken, fish, nuts, seeds, and legumes. (3) Eat Better. Eat small portions. Shop at the grocery with a list and do not stray from it. Tips for a healthy diet include: Limit sodium intake to less than 1500mg daily, avoid prepackaged, processed, and fast foods, choose a diet rich in fruits, vegetables, and whole grain, high fiber foods, and limit saturated & cholesterol in your diet. (4) Manage Blood Pressure. If you have high blood pressure, you should have a cuff at home so that you can check your blood pressure regularly. Be sure you have a good cuff. An arm one is generally better than a wrist one. Bring the cuff to a doctor's appointment to validate that the measurements that your cuff are taking are accurate. Take your blood pressure twice daily when you are sitting down and relaxing. Record the numbers in a log and bring this log with you to your doctors' appointments. (5) Lose Weight if your BMI is above 25. A healthy BMI is between 19-25. To calculate Your BMI, you may use a Standard BMI Calculator on the NIH BMI website: <www.nhlbi.nih.gov/guidelines/obesity/BMI/bmicalc.htm>. Weigh oneself daily. If you are overweight, set a goal to lose weight. A pound a week loss if needed is a good target. (6) Reduce Blood Sugar. Limit foods and liquids with "added sugars." (Added sugars include sucrose, fructose, glucose, maltose, dextrose, high fructose corn syrup, corn syrup, concentrated fruit juice and honey). (7) Stop Smoking. If you smoke, quitting smoking is one of the best things that you can do for your health. Smoking increases your risk of heart attack, stroke, and peripheral vascular disease, which is a build-up of plaque in your arteries. Please discard all the cigarettes and lighters in your house. Have a plan for what you will do when you have the urge to smoke. Direct and second- hand smoke shortens your life as well as the lives of your family, friends and others around you. For your health and the health of those around you, please consider quitting! Proper Bending Body Mechanics: Maintain a wide stance with one foot slightly in front of the other. Keep your back straight. Bend utilizing the strength in your hips and knees. Do not bend at the waist. Maintain the lifted object at your waist-level close to your body. Avoid lifting weight that causes immediately pain or pain anywhere in the body afterwards. Smoking/Nicotine If there was ever one thing that you could do to increase your overall health, decrease your risk of cardiovascular problems by about 39% the second you make the choice, it is to STOP SMOKING. Your body's most instant gratification is the second you stop smoking. We have all heard the studies, read the articles but it is true, smoking is extremely bad for your overall health, and moreover it is detrimental to your bone health. Nicotine, IN ANY FORM, kills bone cells, prevents your body from healing fractures, and significantly prolongs healing after surgery. In spine surgery specifically, it increases your risk of not healing your bones to create a fusion and increases your risk of having a revision surgery due to this up to 60%. I know it is hard. I know it feels impossible. But there are ways. Take control of your life. We are here to help you through it. And when you are ready, ask us and we can direct you to help if you desire. Use the START Plan to Quit Smoking (please visit the Helpguide.org website listed below for more information): S = Set a quit date. Choose a date within the next 2 weeks, so you have enough time to prepare without losing your motivation to quit. If you mainly smoke at work, quit on the weekend, so you have a few days to adjust to the change. T = Tell family, friends, and co-workers that you plan to quit. Let your friends and family in on your plan to quit smoking and tell them you need their support and encouragement to stop. Look for a quit vishal who wants to stop smoking as well. You can help each other get through the rough times. A = Anticipate and plan for the challenges you'll face while quitting. Most people who begin smoking again do so within the first 3 months. You can help yourself make it through by preparing ahead for common challenges, such as nicotine withdrawal and cigarette cravings. R = Remove cigarettes and other tobacco products from your home, car, and work. Throw away all your cigarettes (no emergency pack!), lighters, ashtrays, and matches. Wash your clothes and freshen up anything that smells like smoke. Shampoo your car, clean your drapes and carpet, and steam your furniture. T = Talk to your doctor about getting help to quit. Your doctor can prescribe medication to help with withdrawal and suggest other alternatives. If you can't see a doctor, you can get many products over the counter at your local pharmacy or grocery store, including the nicotine patch, nicotine lozenges, and nicotine gum. Resources for Quitting Smoking: <https:// [place].gov/documents/[facility]/Quit_Tobacco_Resources_for_patients_313480_7.pdf> Supplementation: Take recommended dosages of Vitamin D and Calcium to help fortify your bones and help them to heal. See your health maintenance packet for dosages and recommended levels. DVT/VTE prophylaxis: You will be given compression stockings from the hospital. Wear these daily for the first two weeks after surgery. You may take them off at night. You may be prescribed a medication to help thin your blood. Take this as directed. If you are not prescribed this medication, early and frequent ambulation has been shown to be the best prophylaxis to deep vein thrombosis and sequelae related to this event. Assessment: 1. Severe L3-4 Spondylosis with severe stenosis 2.L2-L5 Stenosis severe 3. Lower extremity radiculopathy with weakness 4. Neurogenic claudication Procedures: 1. L2 midline sparing bilateral laminotomy, foraminotomy and partial medial facetectomy 2. L3-4 complete laminectomy bilateral facetectomy, and foraminotomy 3. L3-4 intradiscal osteotomy (3 column) for deformity correction 4. L3-4 Posteriolateral interbody fusion 5. L3-4 posterior nonsegmental instrumentation 6. Stereotactic computer-assisted (navigational) procedure; Spinal (89341) Patient Condition at Discharge: Good Plan - Discharge Summary Discharge Rx Participant: No New Discharge Prescriptions: New oxyCODONE HCL [OxyIR] 5 mg PO Q6H PRN #28 tab PRN Reason: Pain Cyclobenzaprine [Flexeril] 5 mg PO TID #21 tablet Sennosides [Senna] 8.6 mg PO DAILY #30 tablet cefaDROXiL [Duricef] 1 gm PO DAILY #5 tablet No Action Acetaminophen [Tylenol Extra Strength] 500 - 1,000 mg PO Q6H PRN PRN Reason: Pain Discharge Medication List Acetaminophen [Tylenol Extra Strength] 500 - 1,000 mg PO Q6H PRN 03/13/21 [History] Cyclobenzaprine [Flexeril] 5 mg PO TID #21 tablet 03/22/21 [Rx] Sennosides [Senna] 8.6 mg PO DAILY #30 tablet 03/22/21 [Rx] cefaDROXiL [Duricef] 1 gm PO DAILY #5 tablet 03/22/21 [Rx] oxyCODONE HCL [OxyIR] 5 mg PO Q6H PRN #28 tab 03/22/21 [Rx] Follow up Appointment(s)/Referral(s): Phil Pickens [NON-STAFF] - 1 Week Jodee Veras [NON-STAFF] - 1 Week Vishnu Alexander DO [Doctor of Osteopathic Medicine] - 2 Weeks Activity/Diet/Wound Care/Special Instructions: Spine Discharge and Recovery Instructions Date of Surgery: 03/18/2021 Diagnosis: 1. Severe L3-4 Spondylosis with severe stenosis 2.L2-L5 Stenosis severe 3. Lower extremity radiculopathy with weakness 4. Neurogenic claudication Procedure(s) Performed: 1. L2 midline sparing bilateral laminotomy, foraminotomy and partial medial facetectomy 2. L3-4 complete laminectomy bilateral facetectomy, and foraminotomy 3. L3-4 intradiscal osteotomy (3 column) for deformity correction 4. L3-4 Posteriolateral interbody fusion 5. L3-4 posterior nonsegmental instrumentation 6. Stereotactic computer-assisted (navigational) procedure; Spinal ([id number]) Medications: See medication list All medication refills should be obtained through your primary care doctor or your clinic spine surgeon. Please discuss prescription refills at your follow up appointment. Do not call the hospital for medication refills. Dressing: Leave your dressing in place for a total of 5 days post operatively. Then you may remove your dressing and leave open to air. Keep the area clean and if not able to keep area clean, then cover with sterile gauze and tape. Showering: You may shower 3 days after your procedure allowing soap and water to run over incision. Do not scrub. Do not soak. Blot dry. Follow up: Please confirm a follow up appointment with your surgeon 3 weeks post op eratively. Please make an appointment to follow up with your PCP in 1-2 weeks after surgery for evaluation 3 phase, 3-week plan POST OP WEEKS 1-3 1. Lifting/carrying/pushing/pulling limited to less than 5 pounds. 2. Do not sit for longer than 15 minutes at one time. Get up and walk around. Prolonged sitting is NOT advised. If you lay down, see if you can juliocesar ate laying down on you front (belly side) 3. Walk for periods of 15 minutes = 1 mile but no longer; do it multiple times times each day. 4. Ice your low back after activity. POST OP WEEKS 3-6 1. Lifting limited to less than 20 pounds. 2. Do not sit for longer than 30 minutes at a time. Frequently change positions. Use a sit-to stand workstation or take frequent breaks from sitting if you have returned to work. 3. Walk for 30 minutes each day. If possible, do these three or more times a day POST OP WEEKS 6+ At your 6-week appointment we will give you a physical therapy referral to focus on a core stabilization and strengthening program. You should also work on leg & buttock strengthening, hamstring & quadriceps stretching, and continue a low impact aerobic activity program such as swimming, walking, or riding a stationary bicycle. During the initial 6 weeks after your surgery, you are at the highest risk of re-injuring your spine. You should generally avoid BLTs (bending, lifting and twisting combination motions) and follow the above guidelines to reduce the chance of reinjury. You can anticipate post op appointments in our office at approximately 3 weeks and 6 weeks after your surgery. INCISION CARE: If your incision is not draining you do NOT need to cover it with a dressing. Keep your incision clean, dry and intact. In most cases, we apply skin glue, brijesh or sutures to the incision at the time of surgery. This will be like a crust or have the appearance of a scab and will fall off in time on its own. The stitches or brijesh need to be removed at 3 weeks post op appointment. You may begin to shower 3 days after surgery (this allows the glue to reza well). However, please avoid scrubbing the incision site or peeling off any of the skin glue. This will ensure optimal healing of your incision. Also, during this time avoid soaking the incision area in water - this includes swimming pools, hot tubs or baths. No ointments, lotions or oils on the incision until your surgeon allows. Leave brijesh, sutures or glue in place. Neurological dysfunction that comes on suddenly can also be a sign of a stroke. Below some common symptoms of a stroke are listed: B - balance difficulty such as sudden onset walking or leaning to one side - NEW E - eye problem such as sudden double vision or trouble seeing on one side - NEW F - Facial weakness or numbness on one side - NEW A - Arm or leg weakness or numbness on one side - NEW S - Slurred speech or difficulty with word finding - NEW T - Time is BRAIN! Call 911 as soon as you recognize these symptoms Diet: Consume a regular diet rich in vegetables and lean protein such as chicken or fish. You should consume in a ratio of approximately 20% fats|40% carbohydrates|40%protein. Vegetables, sweet potatoes, brown rice or quinoa are examples of good carbohydrates. Chips, white bread, cookies and sweets/sugar are examples of bad carbohydrates. Limit your bad carbs, go wild with good carbs. "Life's Simple 7" Guidelines as per [place] [employer] These will help you reclaim your life after surgery and operator helper in your recovery, keeping in mind your restrictions. (1) Get Active. Physical activity can help people lose weight, control high blood pressure and cholesterol, feel emotionally better, and sleep better. (2) Control Cholesterol. Avoid a diet high in saturated fat, trans fat, & cholesterol. Limit whole milk & cream, ice cream, butter, egg yolks, processed meats (like sausage and hot dogs), and fatty meats. Choose healthy foods that are low in saturated fat, trans fat and cholesterol which include: Fruits and vegetables, fiber rich grain products (like whole grain pasta and brown rice), lean meat such as chicken, fish, nuts, seeds, and legumes. (3) Eat Better. Eat small portions. Shop at the grocery with a list and do not stray from it. Tips for a healthy diet include: Limit sodium intake to less than 1500mg daily, avoid prepackaged, processed, and fast foods, choose a diet rich in fruits, vegetables, and whole grain, high fiber foods, and limit saturated & cholesterol in your diet. (4) Manage Blood Pressure. If you have high blood pressure, you should have a cuff at home so that you can check your blood pressure regularly. Be sure you have a good cuff. An arm one is generally better than a wrist one. Bring the cuff to a doctor's appointment to validate that the measurements that your cuff are taking are accurate. Take your blood pressure twice daily when you are sitting down and relaxing. Record the numbers in a log and bring this log with you to your doctors' appointments. (5) Lose Weight if your BMI is above 25. A healthy BMI is between 19-25. To calculate Your BMI, you may use a Standard BMI Calculator on the NIH BMI website: <www.nhlbi.nih.gov/guidelines/obesity/BMI/bmicalc.htm>. Weigh oneself daily. If you are overweight, set a goal to lose weight. A pound a week loss if needed is a good target. (6) Reduce Blood Sugar. Limit foods and liquids with "added sugars." (Added sugars include sucrose, fructose, glucose, maltose, dextrose, high fructose corn syrup, corn syrup, concentrated fruit juice and honey). (7) Stop Smoking. If you smoke, quitting smoking is one of the best things that you can do for your health. Smoking increases your risk of heart attack, stroke, and peripheral vascular disease, which is a build-up of plaque in your arteries. Please discard all the cigarettes and lighters in your house. Have a plan for what you will do when you have the urge to smoke. Direct and second- hand smoke shortens your life as well as the lives of your family, friends and others around you. For your health and the health of those around you, please consider quitting! Proper Bending Body Mechanics: Maintain a wide stance with one foot slightly in front of the other. Keep your back straight. Bend utilizing the strength in your hips and knees. Do not bend at the waist. Maintain the lifted object at your waist-level close to your body. Avoid lifting weight that causes immediately pain or pain anywhere in the body afterwards. Smoking/Nicotine If there was ever one thing that you could do to increase your overall health, decrease your risk of cardiovascular problems by about 39% the second you make the choice, it is to STOP SMOKING. Your body's most instant gratification is the second you stop smoking. We have all heard the studies, read the articles but it is true, smoking is extremely bad for your overall health, and moreover it is detrimental to your bone health. Nicotine, IN ANY FORM, kills bone cells, prevents your body from healing fractures, and significantly prolongs healing after surgery. In spine surgery specifically, it increases your risk of not healing your bones to create a fusion and increases your risk of having a revision surgery due to this up to 60%. I know it is hard. I know it feels impossible. But there are ways. Take control of your life. We are here to help you through it. And when you are ready, ask us and we can direct you to help if you desire. Use the START Plan to Quit Smoking (please visit the Helpguide.org website listed below for more information): S = Set a quit date. Choose a date within the next 2 weeks, so you have enough time to prepare without losing your motivation to quit. If you mainly smoke at work, quit on the weekend, so you have a few days to adjust to the change. T = Tell family, friends, and co-workers that you plan to quit. Let your friends and family in on your plan to quit smoking and tell them you need their support and encouragement to stop. Look for a quit vishal who wants to stop smoking as well. You can help each other get through the rough times. A = Anticipate and plan for the challenges you'll face while quitting. Most people who begin smoking again do so within the first 3 months. You can help yourself make it through by preparing ahead for common challenges, such as nicotine withdrawal and cigarette cravings. R = Remove cigarettes and other tobacco products from your home, car, and work. Throw away all your cigarettes (no emergency pack!), lighters, ashtrays, and matches. Wash your clothes and freshen up anything that smells like smoke. Shampoo your car, clean your drapes and carpet, and steam your furniture. T = Talk to your doctor about getting help to quit. Your doctor can prescribe medication to help with withdrawal and suggest other alternatives. If you can't see a doctor, you can get many products over the counter at your local pharmacy or grocery store, including the nicotine patch, nicotine lozenges, and nicotine gum. Resources for Quitting Smoking: <https://www.[place].gov/d ocuments/mdc/Quit_Tobacco_Resources_for_patients_313480_7.pdf> Supplementation: Take recommended dosages of Vitamin D and Calcium to help fortify your bones and help them to heal. See your health maintenance packet for dosages and recommended levels. DVT/VTE prophylaxis: You will be given compression stockings from the hospital. Wear these daily for the first two weeks after surgery. You may take them off at night. You may be prescribed a medication to help thin your blood. Take this as directed. If you are not prescribed this medication, early and frequent ambulation has been shown to be the best prophylaxis to deep vein thrombosis and sequelae related to this event. Keep LSO brace on at all times when up and about. May remove LSO brace only while showering or while lying in bed Discharge Disposition: HOME WITH HOME HEALTH SERVICES
--- NOTE | 2021-03-22 10:03 | P.PN ---
Subjective Progress Note Date: 03/22/21 Principal diagnosis: Status post L2-L5 decompression, L3-L4 fusion Patient was seen at bedside this morning resting comfortably lying semirecumbent in bed. Patient says yesterday he got up into his chair on his own. Patient says his back pain is easing up since yesterday when the drain was removed. Patient says he is still having some pain in the right upper leg region. Patient denies chest pain, fever, chest breath, nausea, change in vision, loss of bladder control. Patient denies any significant numbness/tingling. Objective - Vital Signs Vital signs: Vital Signs Temp 98.4 F 03/22/21 02:00 Pulse 69 03/22/21 04:30 Resp 20 03/22/21 04:30 BP 118/72 03/22/21 04:30 Pulse Ox 93 L 03/22/21 04:30 Intake & Output 03/21/21 03/22/21 03/22/21 18:59 06:59 18:59 Intake Total 100 Output Total 250 300 Balance -250 -200 Intake: Oral 100 Output: Urine 250 300 Other: Voiding Method Urinal Urinal # Voids 4 1 - Exam Focused Spine- Incision was clean, dry, intact. Foster are in good position and well aligned. Incision is healing well. Foam dressing was placed over main midline incision.. Patient does have some moderate tenderness to palpation over incision. Nontender to palpation throughout the rest exam. Neurovascular status intact. Capillary refill is below 3 seconds bilaterally in upper extremities. Radial pulses intact, bilaterally, 2+. Negative Homans bilaterally. Patient is able to wiggle toes in both feet bilaterally. - Labs CBC & Chem 7: 03/19/21 06:33 03/19/21 06:33 Labs: Abnormal Lab Results - Last 24 Hours (Table) 03/21/21 Range/Units 20:27 Urine Ketones 1+ H (Negative) Assessment and Plan Assessment: Postoperative day #4 status post L2-L5 decompression, L3-L4 fusion Plan: 1. 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 Patient stable at bedside this morning. Plan discharge home today with health services 2. Appreciate medical management 3. Pain management - oxycodone; Tylenol; Flexeril 4. DVT prophylaxis - Lovenox 5. GI prophylaxis - senna; magnesium hydroxide 6. PT/OT - weightbearing as tolerated. When up and about needs LSO brace on at all times 7. Discharge planning - plan for discharge home today with health services Time with Patient: Less than 30
== END 2021-03-22 11:10 | disposition home health service (06) | DRG 454 ==
LOC: 2ORMAIN 05:48 → 5NMEDONC 13:16
PROVIDERS: ADMIT Orthopaedic Surgery; ATTEND Orthopaedic Surgery
PROC: 0SG10AJ Fusion of 2 or more Lumbar Vertebral Joints with Interbody Fusion Device, Posterior Approach, Anterior Column, Open Approach (ICD-10-PCS; principal; 2021-03-19)
PROC: 0SG0071 Fusion of Lumbar Vertebral Joint with Autologous Tissue Substitute, Posterior Approach, Posterior Column, Open Approach (ICD-10-PCS; 2021-03-19)
PROC: 0SG10KJ Fusion of 2 or more Lumbar Vertebral Joints with Nonautologous Tissue Substitute, Posterior Approach, Anterior Column, Open Approach (ICD-10-PCS; 2021-03-19)
PROC: 0SG00K1 Fusion of Lumbar Vertebral Joint with Nonautologous Tissue Substitute, Posterior Approach, Posterior Column, Open Approach (ICD-10-PCS; 2021-03-19)
PROC: 00NY0ZZ Release Lumbar Spinal Cord, Open Approach (ICD-10-PCS; 2021-03-19)
PROC: 0Q800ZZ Division of Lumbar Vertebra, Open Approach (ICD-10-PCS; 2021-03-19)
PROC: 01NR0ZZ Release Sacral Nerve, Open Approach (ICD-10-PCS; 2021-03-19)
PROC: 01NB0ZZ Release Lumbar Nerve, Open Approach (ICD-10-PCS; 2021-03-19)
PROC: 4A11X4G Monitoring of Peripheral Nervous Electrical Activity, Intraoperative, External Approach (ICD-10-PCS; 2021-03-19)
PROC: 8E0WXBF Computer Assisted Procedure of Trunk Region, With Fluoroscopy (ICD-10-PCS; 2021-03-19)
DX: M48.062 Spinal stenosis, lumbar region with neurogenic claudication (principal); M48.56XA Collapsed vertebra, not elsewhere classified, lumbar region, initial encounter for fracture; E78.5 Hyperlipidemia, unspecified; F17.210 Nicotine dependence, cigarettes, uncomplicated; Z20.822 Contact with and (suspected) exposure to COVID-19; I10 Essential (primary) hypertension; G40.909 Epilepsy, unspecified, not intractable, without status epilepticus; M47.26 Other spondylosis with radiculopathy, lumbar region; M47.22 Other spondylosis with radiculopathy, cervical region; M48.02 Spinal stenosis, cervical region; Z80.1 Family history of malignant neoplasm of trachea, bronchus and lung; J44.9 Chronic obstructive pulmonary disease, unspecified; K21.9 Gastro-esophageal reflux disease without esophagitis
CPT/HCPCS: 71045; 72100; 72131; 80048; 80051; 81003; 85025; 85610; 86850; 86900; 86901; 87070; 87635

== ENCOUNTER 2022-01-28 15:38 | Inpatient (IN) | payer OTHER ==
[2022-01-28] MEDS ORDERED: HEPARIN SODIUM 1,000 UN/ML (10ML VL) IV ONE (15:41)
[2022-01-28] MEDS ORDERED: ASPIRIN 81 MG PO STA (15:41)
[2022-01-28] MEDS ORDERED: SODIUM CHLORIDE 0.9% 500 ML 500 ML IV STA (15:41)
--- NOTE | 2022-01-28 15:44 | ED ---
Chest Pain HPI - General Stated Complaint: possible stemi Time Seen by Provider: 01/28/22 15:41 Source: patient, EMS Mode of arrival: EMS Limitations: altered mental status - History of Present Illness Initial Comments: This patient is a 56-year-old man with history of smoking who presents with acute onset of chest pain approximately 20 minutes before arrival. The patient states that he had the onset of pain, dyspnea, diaphoresis and called his daughter, telling her something was wrong. She called EMS who brings the patient for evaluation. The patient is not able to fully cooperate with history and physical. Answering some questions but not able to fully characterize the chest discomfort. MD Complaint: chest pain Onset/Timin -: minutes(s) Onset: during rest Pain Location: substernal Pain Radiation: none Quality: heaviness Consistency: constant Improves With: nothing Worsens With: nothing Anginal Symptoms: diaphoresis, dyspnea Treatments Prior to Arrival: oxygen - Related Data Home Medications Medication Instructions Recorded Confirmed Acetaminophen [Tylenol Extra 500 - 1,000 mg PO Q6H PRN 03/13/21 03/13/21 Strength] Previous Rx's Medication Instructions Recorded Cyclobenzaprine [Flexeril] 5 mg PO TID #21 tablet 03/22/21 Sennosides [Senna] 8.6 mg PO DAILY #30 tablet 03/22/21 cefaDROXiL [Duricef] 1 gm PO DAILY #5 tablet 03/22/21 oxyCODONE HCL [OxyIR] 5 mg PO Q6H PRN #28 tab 03/22/21 Allergies Allergy/AdvReac Type Severity Reaction Status Date / Time No Known Allergies Allergy Verified 03/13/21 11:54 Review of Systems ROS Statement: Those systems with pertinent positive or pertinent negative responses have been documented in the HPI. ROS Other: All systems not noted in ROS Statement are negative. Constitutional: Denies: fever Respiratory: Reports: dyspnea. Denies: cough Cardiovascular: Reports: chest pain. Denies: palpitations, orthopnea, edema, syncope Gastrointestinal: Denies: abdominal pain, nausea, vomiting EKG Findings - EKG Comments: EKG Findings:: ECG shows ST elevations in the inferior leads, 2, 3, aVF. There are reciprocal changes in the lateral and septal leads. - EKG Results: EKG: interpreted by AJITH, sinus rhythm (Rate 65 bpm), normal axis - NC, Pacemaker, Normal: Myocardial infarction: inferior NC (acute or recent) Past Medical History Past Medical History: GERD/Reflux, Hyperlipidemia, Hypertension, Seizure Disorder Additional Past Medical History / Comment(s): states "has been off b/p,cholesterol,dilantin medication for a year",last seizure "3 or 5 years ago" History of Any Multi-Drug Resistant Organisms: None Reported Additional Past Surgical History / Comment(s): knee surgery Past Anesthesia/Blood Transfusion Reactions: No Reported Reaction Past Psychological History: Depression Smoking Status: Former smoker - Past Family History Mother Family Medical History: No Reported History Father Family Medical History: Cancer Additional Family Medical History / Comment(s): lung CA General Exam General appearance: alert, in distress Head exam: Present: atraumatic, normocephalic Eye exam: Present: normal appearance. Absent: scleral icterus, conjunctival injection ENT exam: Present: mucous membranes dry Neck exam: Present: normal inspection Respiratory exam: Present: wheezes. Absent: respiratory distress, rales, rhonchi, stridor, accessory muscle use Cardiovascular Exam: Present: regular rate, normal rhythm, normal heart sounds. Absent: systolic murmur, diastolic murmur, rubs, gallop GI/Abdominal exam: Present: soft. Absent: distended, tenderness, guarding, rebound, rigid, mass Extremities exam: Present: normal inspection, normal capillary refill. Absent: pedal edema, calf tenderness Back exam: Present: normal inspection Neurological exam: Present: alert Skin exam: Present: warm, intact, normal color, diaphoretic. Absent: rash Course Vital Signs 01/28/22 15:39 Pulse Rate 63 Respiratory 18 Rate Blood Pressure 114/69 O2 Sat by Pulse 100 Oximetry - Reevaluation(s) Reevaluation #1: 01/28/22 16:03 During preparation for High Value Associate, the patient was becoming more more agitated attempting to get off the bed and being somewhat resistant to care, he was given 1 mg of Ativan which did calm him. Prior to the patient becoming agitated, I did discuss with the patient the High Value Associate procedure and he did give verbal consent. Chest Pain MDM - MDM This patient is 56-year-old man with smoking history who presents by ambulance with chest pain. Ambulance had sent telemetry ECG showing inferior ST elevations. Dr. Lim was discussing another patient with one of the nurses in the department and I informed him of this, he did request chemical lab technician to be activated which was subsequent only done, the patient seen here and sent to chemical lab technician. Critical Care Time Critical Care Time: Yes (30 minutes) Disposition Clinical Impression: ST elevation myocardial infarction (STEMI) Disposition: ADMITTED IP TO THIS HOSP Condition: Critical Referrals: Reilly Hamilton MD [Primary Care Provider] - 1-2 days
[2022-01-28] MEDS ORDERED: LORazepam 2 MG/ML INJ IV PRN (15:50)
[2022-01-28] MEDS ORDERED: MORPHINE SULFATE 4 MG/ML SYRINGE IVP PRN (15:50)
[2022-01-28] MEDS ORDERED: VERAPAMIL 2.5 MG/ML 2 ML AMP ONE (15:58)
[2022-01-28] MEDS ORDERED: IV FLUID CONTINUATION 1,000 ML IV ONE (16:05)
[2022-01-28 16:11] LABS: ALT 13 U/L (4-49); AST 16 U/L (17-59); African American GFR (CKD) >90 (>60 ml/min/1.73 sqM); Albumin 2.5 g/dL (3.5-5.0); Alkaline Phosphatase 53 U/L (38-126); Anion Gap 8 mmol/L; Blood Urea Nitrogen 10 mg/dL (9-20); Carbon Dioxide 16 mmol/L (22-30); Chloride 116 mmol/L (98-107); Glucose 92 mg/dL (74-99); Non-African American GFR(CKD) >90 (>60 ml/min/1.73 sqM); Sodium 140 mmol/L (137-145); Total Bilirubin 0.2 mg/dL (0.2-1.3); Total Protein 4.8 g/dL (6.3-8.2)
--- NOTE | 2022-01-28 16:11 | XR ---
EXAMINATION TYPE: XR chest 1V portable DATE OF EXAM: 01/28/2022 3:59 PM COMPARISON: Chest radiographs from 03/21/2021 TECHNIQUE: XR chest 1V portable Portable AP radiograph of the chest. CLINICAL INDICATION:Male, 56 years old with history of chest pain; FINDINGS: Lungs/Pleura: Low lung volumes are present. There is no evidence of pleural effusion, focal consolida tion, or pneumothorax. Pulmonary vascularity: Unremarkable. Heart/mediastinum: Cardiomediastinal silhouette is unremarkable. Musculoskeletal: No acute osseous pathology. IMPRESSION: basilar atelectasis without acute cardiopulmonary disease/process.
[2022-01-28 16:13] LABS: Basophils % (A) 0 %; Eosinophils # (A) 0.1 k/uL (0-0.7); Eosinophils % (A) 1 %; HCT 39.9 % (39.0-53.0); Lymphocytes # (A) 4.2 k/uL (1.0-4.8); Lymphocytes % (A) 34 %; MCHC 32.5 g/dL (31.0-37.0); MCV 95.4 fL (80.0-100.0); Mean Platelet Volume 7.8; Monocytes # (A) 0.7 k/uL (0-1.0); Monocytes % (A) 6 %; Neutrophils # (A) 7.2 k/uL (1.3-7.7); Neutrophils % (A) 57 %; Platelet Count 270 k/uL (150-450); RBC 4.19 m/uL (4.30-5.90); RDW 14.4 % (11.5-15.5); WBC 12.5 k/uL (3.8-10.6)
[2022-01-28] MEDS ORDERED: LIDOCAINE 1% INJ 10MG/ML (30 ML VIAL-PF) SQ ONE ×2 (16:17)
[2022-01-28] MEDS ORDERED: HEPARIN SODIUM 1,000 UN/ML (10ML VL) ONE (16:20)
[2022-01-28 16:25] LABS: Calcium 5.7 mg/dL (8.4-10.2); Potassium 2.5 mmol/L (3.5-5.1)
[2022-01-28] MEDS ORDERED: SODIUM CHLORIDE 0.9% 1,000 ML IV ONE ×2 (16:25→17:02)
[2022-01-28] MEDS ORDERED: PRASUGREL 10 MG TAB PO ONE (16:25)
[2022-01-28] MEDS ORDERED: PRASUGREL 10 MG TAB ONE (16:26)
[2022-01-28] MEDS ORDERED: POTASSIUM CHLORIDE 20 MEQ in WATER FOR INJECTION 1 100ML.BAG IVPB STA (16:27)
[2022-01-28 16:28] LABS: INR 1.1 (<1.2); Prothrombin Time 12.1 sec (9.0-12.0)
[2022-01-28] MEDS ORDERED: DOPamine DRIP 800 MG in DEXTROSE/WATER 1 250ML.BAG IV ONE (16:31)
[2022-01-28] MEDS ORDERED: PHENYLEPHRINE 10 MG/ML VIAL IV ONE (16:33)
[2022-01-28] MEDS ORDERED: PHENYLEPHRINE-0.9% NACL SYG 1,000 MCG/10 ML SYRINGE IV ONE (16:33)
[2022-01-28] MEDS ORDERED: IOPAMIDOL-370 125ML BTL INJ ONE ×2 (16:40→17:45)
[2022-01-28 16:43] LABS: Partial Thromboplastin Time >200.0 sec (22.0-30.0)
[2022-01-28] MEDS: MAGNESIUM SULFATE-D5W PMX 1 GM in DEXTROSE/WATER 1 100ML.BAG IVPB SCH ×3 (16:45→17:51)
[2022-01-28] MEDS ORDERED: ATROPINE SULFATE 0.1 MG/ML 10ML SYRINGE IV PRN ×2 (16:48→17:54)
[2022-01-28] MEDS ORDERED: NITROGLYCERIN SL TABS 0.4 MG TAB SUBLINGUAL PRN ×2 (16:48→17:54)
[2022-01-28] MEDS ORDERED: MAG HYDROX/AL HYDROX/SIMETH 30 ML CUP PO PRN ×2 (16:48→17:54)
[2022-01-28] MEDS ORDERED: RX INFO: IV CONTRAST WAS GIVEN 1 EACH MISC MISCELLANE PRN ×2 (16:48→17:54)
[2022-01-28] MEDS ORDERED: ZOLPIDEM 5 MG TAB PO PRN ×2 (16:48→17:54)
--- NOTE | 2022-01-28 16:55 | P.PCN ---
Date of Procedure: 01/28/22 Operative Findings: CARDIAC CATHETERIZATION AND PERCUTANEOUS CORONARY INTERVENTION PERFORMING PHYSICIAN: Gianfranco Perry MD, [facility] PROCEDURE PERFORMED: 1. Selective right and left coronary angiogram 2. Left heart catheterization 3. Successful stenting of mid RCA using 3.5 x 23 Xience HEATHER which with an excellent angiographic results 4. Selective right common femoral artery angiogram INDICATION: Acute inferior ST elevation myocardial infarction COMPLICATION: None APPROACH: Right common femoral artery LEVEL OF SEDATION: Moderate with the sedation time off 26 minutes PROCEDURE DESCRIPTION: After obtaining informed consent the patient was brought to the cardiac manager labor delivery. The right common femoral artery was cannulated using micropuncture technique, the micropuncture wire passed easily then placed a 6-Portuguese sheath. After that I did selective right coronary angiogram using JR 3.5 guiding catheter and then after that I did intervene on the RCA. Subsequently I did selective left coronary angiogram using JL 3.5 diagnosed A catheter. After that left heart catheterization was performed using the JR4 guide which cross aortic valve then I did pulled back across the valve. The procedure was completed without any complications SELECTIVE CORONARY ANGIOGRAM: The right coronary artery: Large caliber vessel ansa dominant vessel. The RCA in the midportion is occluded with a large thrombus burden. The RCA in the proximal and distal portion appears to have mild disease only. Left main: Is angiographically normal. Bifurcates into LCx and LAD The left circumflex: Large caliber vessel nondominant vessel. The LCx system appeared to have mild disease by the first OM branch. Second OM branch appeared to be angiographically normal The left anterior descending artery: The LAD is a large caliber vessel and appears to be angiographically normal. Gives rises into the large diagonal branch which seems to be angiographically normal HEMODYNAMICS: The LVEDP was 14 mmHg was no significant gradient across aortic valve PCI OF THE RCA: Anticoagulation was initiated using heparin with continuous ACT monitoring. Sub sequently I did engage the RCA using JR 3.5 guiding catheter. I did wired using a run-through wire. After that balloon angioplasty was performed using 2.5 x 15 mm balloon before I deployed 3.5 x 23 mm stent where the stent was positioned under fluoroscopy guidance and deployed under its nominal pressure. Postdilatation was performed using 3.75 mm balloon. The final angiogram showed excellent angiographic results and the procedure was completed without any complication CONCLUSION: #[address] patient myocardial infarction #2 acute total occlusion of the mid RCA. Successful angioplasty and stenting of the RCA was performed #3 mild disease involving the left coronary system #4 normal left-sided filling pressure POSTPROCEDURE MANAGEMENT: #1 dual antiplatelet therapy aspirin and Effient for 12 months #2 aggressive cholesterol control #3 follow-up with the patient
--- NOTE | 2022-01-28 16:58 | P.CRDCN ---
History of Present Illness Consult date: 01/28/22 Chief complaint: Chest pain History of present illness: This is a 56-year-old gentleman who was brought to the emergency department with a chest discomfort by ambulance. The patient somewhat is lethargic and poor historian. He was in his usual state of health until earlier today when he was started experiencing discomfort in the middle of the chest as a pressure on the chest with no radiation to the arms or neck or shoulders and no associated symptoms of dizziness or lightheadedness or any sweating or presyncope or syncope. Ambulance was called and EKG in the field showed inferior ST patient myocardial infarction. Subsequently the patient was brought to the emergency department where the repeated EKG confirmed the inferior STEMI. An emergent heart catheterization was performed and showed acute total occlusion of the mid RCA which was a stented with an excellent angiographic results with mild disease involving the left coronary system and normal left-sided filling pressures. The patient was chest pain-free by the end of her procedure. The procedure was performed from the right groin. The patient going to be admitted to the intensive. For 24 hours to 48 hours and he will have an echocardiogram to assess ejection fraction. No prior history of diabetes or hypertension or dyslipidemia according to the patient. No significant history of smoking. Past Medical History Past Medical History: GERD/Reflux, Hyperlipidemia, Hypertension, Seizure Disorder Additional Past Medical History / Comment(s): states "has been off b/p,cholesterol,dilantin medication for a year",last seizure "3 or 5 years ago" History of Any Multi-Drug Resistant Organisms: None Reported Additional Past Surgical History / Comment(s): knee surgery Past Anesthesia/Blood Transfusion Reactions: No Reported Reaction Past Psychological History: Depression Smoking Status: Former smoker - Past Family History Mother Family Medical History: No Reported History Father Family Medical History: Cancer Additional Family Medical History / Comment(s): lung CA Medications and Allergies Home Medications Medication Instructions Recorded Confirmed Type Acetaminophen [Tylenol Extra 500 - 1,000 mg PO Q6H PRN 03/13/21 03/13/21 History Strength] Cyclobenzaprine [Flexeril] 5 mg PO TID #21 tablet 03/22/21 Rx Sennosides [Senna] 8.6 mg PO DAILY #30 tablet 03/22/21 Rx cefaDROXiL [Duricef] 1 gm PO DAILY #5 tablet 03/22/21 Rx oxyCODONE HCL [OxyIR] 5 mg PO Q6H PRN #28 tab 03/22/21 Rx Allergies Allergy/AdvReac Type Severity Reaction Status Date / Time No Known Allergies Allergy Verified 03/13/21 11:54 Physical Exam Vitals: Vital Signs Pulse Resp BP Pulse Ox 01/28/22 15:39 63 18 114/69 100 Intake and Output 01/28/22 01/28/22 01/28/22 06:59 14:59 22:59 Other: Weight 83.915 kg - Constitutional General appearance: no acute distress - Respiratory Respiratory: bilateral: diminished - Cardiovascular Rhythm: regular Heart sounds: normal: S1, S2 Abnormal Heart Sounds: systolic murmur Results 01/28/22 15:51 01/28/22 15:51 Cardiac Enzymes 01/28/22 01/28/22 Range/Units 15:51 15:51 AST 16 L (17-59) U/L Troponin I 0.304 H* (0.000-0.034) ng/mL Coagulation 01/28/22 Range/Units 15:51 PT 12.1 H (9.0-12.0) sec APTT >200.0 H* (22.0-30.0) sec CBC 01/28/22 Range/Units 15:51 WBC 12.5 H (3.8-10.6) k/uL RBC 4.19 L (4.30-5.90) m/uL Hgb 13.0 (13.0-17.5) gm/dL Hct 39.9 (39.0-53.0) % Plt Count 270 (150-450) k/uL Comprehensive Metabolic Panel 01/28/22 Range/Units 15:51 Sodium 140 (137-145) mmol/L Potassium 2.5 L* (3.5-5.1) mmol/L Chloride 116 H (98-107) mmol/L Carbon Dioxide 16 L (22-30) mmol/L BUN 10 (9-20) mg/dL Creatinine 0.68 (0.66-1.25) mg/dL Glucose 92 (74-99) mg/dL Calcium 5.7 L* (8.4-10.2) mg/dL AST 16 L (17-59) U/L ALT 13 (4-49) U/L Alkaline Phosphatase 53 (38-126) U/L Total Protein 4.8 L (6.3-8.2) g/dL Albumin 2.5 L (3.5-5.0) g/dL Current Medications Generic Name Dose Route Start Last Admin Trade Name Freq PRN Reason Stop Dose Admin Al Hydroxide/Mg Hydroxide 30 ml 01/28/22 16:48 Mag Hydrox/Al Hydrox/Simeth 30 Ml Cup PO Q4HR PRN Heartburn Aspirin 81 mg 01/29/22 09:00 Aspirin 81 Mg PO DAILY XU Atorvastatin Calcium 80 mg 01/28/22 21:00 Atorvastatin 80 Mg Tab PO HS XU Atropine Sulfate 0.5 mg 01/28/22 16:48 Atropine Sulfate 0.1 Mg/Ml 10ml Syringe IV ONCE PRN Symptomatic Bradycardia Heparin Sodium/Sodium Chloride 250 mls @ 10.07 mls/hr 01/28/22 15:45 25,000 unit/ Sodium Chloride IV .Q24H XU Protocol 12 UNITS/KG/HR Potassium Chloride 20 meq/ IV 100 mls @ 50 mls/hr 01/28/22 16:27 Solution IVPB 01/28/22 18:26 ONCE STA Magnesium Sulfate/Dextrose 1 100 mls @ 100 mls/hr 01/28/22 16:45 gm/ IV Solution IVPB 01/28/22 18:44 Q1H XU Sodium Chloride 1,000 ml/ IV 1,000 mls @ 75 mls/hr 01/28/22 17:00 Solution IV 01/28/22 23:01 .[id number] XU Lorazepam 1 mg 01/28/22 15:50 01/28/22 15:50 Lorazepam 2 Mg/Ml Inj IV 1 mg ONCE PRN Administration Anxiety Metoprolol Tartrate 25 mg 01/28/22 21:00 Metoprolol Tartrate 25 Mg Tab PO BID [facility] Miscellaneous Information 1 each 01/28/22 16:48 Rx Info: Iv Contrast Was Given 1 Each Misc MISCELLANE 01/30/22 16:48 DAILY PRN Per Protocol Morphine Sulfate 4 mg 01/28/22 15:50 01/28/22 15:50 Morphine Sulfate 4 Mg/Ml Syringe IVP 4 mg ONCE PRN Administration Pain Nitroglycerin 0.4 mg 01/28/22 16:48 Nitroglycerin Sl Tabs 0.4 Mg Tab SUBLINGUAL Q5M PRN Chest Pain Prasugrel 10 mg 01/29/22 09:00 Prasugrel 10 Mg Tab PO DAILY XU Protocol Zolpidem Tartrate 5 mg 01/28/22 16:48 Zolpidem 5 Mg Tab PO HS PRN Insomnia Intake and Output 01/28/22 01/28/22 01/28/22 06:59 14:59 22:59 Other: Weight 83.915 kg Patient Weight 01/29/22 06:59 Weight 83.915 kg 01/28/22 15:51 01/28/22 15:51 Assessment and Plan Assessment: Assessment #1 inferior STEMI Plan #1 the patient underwent stenting of the RCA #2 dual antiplatelet therapy #3 aggressive cholesterol control #4 risk factors modification #5 an echocardiogram was Doppler
[2022-01-28] MEDS ORDERED: SODIUM CHLORIDE 0.9% 1,000 ML in EMPTY BAG 1 BAG IV SCH ×2 (17:00→18:00)
[2022-01-28] MEDS ORDERED: NOREPINEPHRINE 4 MG in SODIUM CHLORIDE 0.9% 250 ML IV ONE (17:23)
[2022-01-28] MEDS ORDERED: TIROFIBAN 12.5MG-250ML NS 250 ML IV ONE (17:35)
[2022-01-28] MEDS ORDERED: TIROFIBAN BOLUS 12.5MG/250 ML BAG IV ONE (17:35)
[2022-01-28] MEDS ORDERED: NITROGLYCERIN 1000MCG/10ML SYRINGE INTRACORON ONE (17:45)
[2022-01-28] MEDS: HEPARIN SOD,PORK IN 0.45% NACL 25,000 UNIT in 0.45% NACL 1 250ML.BAG IV SCH (17:56)
--- NOTE | 2022-01-28 18:01 | P.PCN ---
Date of Procedure: 01/28/22 Operative Findings: PERCUTANEOUS CORONARY INTERVENTION Performing physician Gianfranco Perry M.D. Procedure Performed: 1. Successful stenting of the distal RCA using 4.0 x 28 mm Xience drug-eluting stent with an excellent angiographic results. 2. Successful angioplasty of the mid right coronary artery using 4 mm balloon with an excellent angiographic results 3. Aspiration thrombectomy from the RCA 4. Intravascular ultrasound of the RCA Indication: This is a 66-year-old gentleman who presented to the hospital earlier today with a chest discomfort and EKG showing an inferior ST patient myocardial infarction. He underwent an emergent heart catheterization and was found to have an occluded RCA which was stented with a good angiographic results. After the procedure he developed chest discomfort and EKG concerning for inferior STEMI again. In the light of that an emergent heart catheterization was advised Approach: Right common femoral artery Complications: None Level of Sedation: Moderate with a sedation length of 18 minutes Procedure Discussion: The patient was already in the clinical lab assistant he felt the chest discomfort and EKG changes inferiorly. The sheath was already placed from the prior heart catheterization. At that point anticoagulation was initiated using heparin and the patient was given a total of 6000 of heparin IV. After that I did selective right coronary angiogram using JR4 guiding catheter and that showed an occluded RCA with in-stent occlusion and large thrombus burden. Angioplasty at that point was performed using 3.5 x 15 mm balloon with restoring flow in the RCA but large residual thrombus burden. At that point I did an aspiration thrombectomy and then I did intravascular ultrasound which showed a diameter of the RCA about 4 mm distally. The distal edge of the stent appeared to be also somewhat concerning and for that reason I decided to stent that segment. I placed 40 by 28 mm stent where the stent was positioned over fluoroscopy guidance and deployed under fluoroscopy guidance. The area of overlap as well as the previous stent was also dilated using 4 mm balloon. Final angiogram showed good angiographic results and the procedure was completed without any complication Postprocedure Management: 1. Continue dual antiplatelet therapy 2. Start the patient on Aggrastat for at least 12-24 hours 3. ICU admission
[2022-01-28 18:10] LABS: Glucose,Whole Blood 108 mg/dL (70-110)
[2022-01-28] MEDS ORDERED: METOPROLOL TARTRATE 25 MG TAB PO SCH (21:00)
[2022-01-28] MEDS: TIROFIBAN 12.5MG-250ML NS 250 ML IV SCH (21:14)
[2022-01-28 21:20] LABS: Ionized Calcium 4.5 mg/dL (4.5-5.3)
[2022-01-28 21:27] LABS: Potassium 4.4 mmol/L (3.5-5.1)
[2022-01-28] MEDS: ATORVASTATIN 80 MG TAB PO SCH (21:28)
[2022-01-29] MEDS: NOREPINEPHRINE 4 MG in SODIUM CHLORIDE 0.9% 250 ML IV SCH ×2 (01:21→21:38)
[2022-01-29 07:18] LABS: African American GFR (CKD) >90 (>60 ml/min/1.73 sqM); Anion Gap 6 mmol/L; Blood Urea Nitrogen 10 mg/dL (9-20); Calcium 8.3 mg/dL (8.4-10.2); Carbon Dioxide 22 mmol/L (22-30); Chloride 109 mmol/L (98-107); Glucose 110 mg/dL (74-99); Magnesium 2.3 mg/dL (1.6-2.3); Non-African American GFR(CKD) >90 (>60 ml/min/1.73 sqM); Potassium 4.3 mmol/L (3.5-5.1); Sodium 137 mmol/L (137-145)
--- NOTE | 2022-01-29 07:19 | P.PN ---
Subjective Progress Note Date: 01/29/22 Principal diagnosis: Acute inferior ST elevation myocardial infarction This is a 56-year-old gentleman who was brought to the emergency department with a chest discomfort by ambulance. The patient somewhat is lethargic and poor historian. He was in his usual state of health until earlier today when he was started experiencing discomfort in the middle of the chest as a pressure on the chest with no radiation to the arms or neck or shoulders and no associated symptoms of dizziness or lightheadedness or any sweating or presyncope or syncope. Ambulance was called and EKG in the field showed inferior ST patient myocardial infarction. Subsequently the patient was brought to the emergency department where the repeated EKG confirmed the inferior STEMI. An emergent heart catheterization was performed and showed acute total occlusion of the mid RCA which was a stented with an excellent angiographic results with mild disease involving the left coronary system and normal left-sided filling pressures. The patient was chest pain-free by the end of her procedure. The procedure was performed from the right groin. The patient going to be admitted to the intensive. For 24 hours to 48 hours and he will have an echocardiogram to assess ejection fraction. No prior history of diabetes or hypertension or dyslipidemia according to the patient. No significant history of smoking. 01/29/2022 The patient was seen this morning. He is asymptomatic. No chest discomfort at this point. He is in normal sinus mechanism with sinus bradycardia. The pressure is marginal and he is requiring small doses of norepinephrine which I am going to wean him from. Beside that I'm going to stop the beta oswald was metoprolol in the light of low blood pressure and low heart rate. He remains on dual antiplatelet therapy along with high intensity statin. He is off the Aggrastat. An echocardiogram still pending. I would advise monitor the patient in the intensive care unit for additional 24 hours and continue the current medical regimen and follow-up with the patient. The right groin is soft and nontender and without any bruises Objective - Vital Signs Vital signs: Vital Signs Temp 97.2 F L 01/29/22 04:00 Pulse 62 01/29/22 07:15 Resp 26 H 01/29/22 07:15 BP 88/58 01/29/22 07:15 Pulse Ox 94 L 01/29/22 07:15 FiO2 100 01/28/22 20:17 Intake & Output 09/01/29/22 01/29/22 18:59 06:59 18:59 Intake Total 1207.18 970.614 75 Output Total 1100 0 Balance 1207.18 -129.386 75 Weight 83.915 kg 80.5 kg Intake: IV 1207.18 912 75 Sodium Chloride 0.9% 1, 900 75 000 ml In Empty Bag 1 bag @ 75 mls/hr IV .[id number] XU Rx#:[id number] pressure bag 3 12 Intake, IV Titration 58.614 Amount Norepinephrine 4 mg In 58.614 Sodium Chloride 0.9% 250 ml @ 0.05 MCG/KG/MIN 15. 986 mls/hr IV .[id number] XU Rx#:[id number] Output: Urine 1100 0 Other: Voiding Method Urinal # Voids 1 ABP, PAP, CO, CI - Last Documented Arterial Blood Pressure 138/63 - Constitutional General appearance: Present: no acute distress - Respiratory Respiratory: bilateral: CTA - Cardiovascular Rhythm: regular Heart sounds: normal: S1, S2 - Labs CBC & Chem 7: 01/28/22 15:51 01/28/22 18:25 Labs: Abnormal Lab Results - Last 24 Hours (Table) 01/28/22 01/28/22 01/28/22 Range/Units 15:51 15:51 15:51 WBC 12.5 H (3.8-10.6) k/uL RBC 4.19 L (4.30-5.90) m/uL PT 12.1 H (9.0-12.0) sec APTT >200.0 H* (22.0-30.0) sec Potassium 2.5 L* (3.5-5.1) mmol/L Chloride 116 H (98-107) mmol/L Carbon Dioxide 16 L (22-30) mmol/L Calcium 5.7 L* (8.4-10.2) mg/dL Magnesium (1.6-2.3) mg/dL AST 16 L (17-59) U/L Troponin I (0.000-0.034) ng/mL Total Protein 4.8 L (6.3-8.2) g/dL Albumin 2.5 L (3.5-5.0) g/dL 01/28/22 01/28/22 Range/Units 15:51 16:41 WBC (3.8-10.6) k/uL RBC (4.30-5.90) m/uL PT (9.0-12.0) sec APTT (22.0-30.0) sec Potassium (3.5-5.1) mmol/L Chloride (98-107) mmol/L Carbon Dioxide (22-30) mmol/L Calcium (8.4-10.2) mg/dL Magnesium 1.4 L (1.6-2.3) mg/dL AST (17-59) U/L Troponin I 0.304 H* (0.000-0.034) ng/mL Total Protein (6.3-8.2) g/dL Albumin (3.5-5.0) g/dL Assessment and Plan Assessment: Assessment #1 inferior STEMI #2 hypotension requiring vasopressors Plan #1 the patient underwent stenting of the RCA #2 dual antiplatelet therapy #3 aggressive cholesterol control #4 DC metoprolol in the light of low blood pressure and low heart rate #5 follow-up on the echocardiogram #6 monitor the patient in the intensive care unit
[2022-01-29] MEDS: PRASUGREL 10 MG TAB PO SCH (08:57)
[2022-01-29] MEDS: ASPIRIN 81 MG PO SCH (08:57)
[2022-01-29 10:34] VITALS: BMI 24.0
[2022-01-29] MEDS: HEPARIN SOD,PORK IN 0.45% NACL 25,000 UNIT in 0.45% NACL 1 250ML.BAG IV SCH (16:22)
[2022-01-29] MEDS: TIROFIBAN 12.5MG-250ML NS 250 ML IV SCH (16:22)
--- NOTE | 2022-01-29 17:23 | CA ---
Transthoracic Echo Report Name: Abel Jane Age: 56 Gender: M : 1965 Exam Date: 01/29/2022 07:31 Exam Location: [facility] Ht (in): 72 Wt (lb): 177 Ordering Physician: Gianfranco Perry MD ([id number]) Attending/Referring Phys: Bobbin Dumper Lilli May RDCS Procedure CPT: Indications: acute coronary syndrome Cardiac Hx: Technical Quality: Technically difficult study Contrast 1: Lumason Total Dose (mL): 3 Contrast 2: Total Dose (mL): MEASUREMENTS (Male / Female) Normal Values 2D ECHO LV Diastolic Diameter PLAX 5.0 cm 4.2 - 5.9 / 3.9 - 5.3 cm LV Systolic Diameter PLAX 4.0 cm IVS Diastolic Thickness 1.0 cm 0.6 - 1.0 / 0.6 - 0.9 cm LVPW Diastolic Thickness 1.2 cm 0.6 - 1.0 / 0.6 - 0.9 cm LV Relative Wall Thickness 0.4 RV Internal Dim ED PLAX 2.4 cm LA Systolic Diameter LX 3.4 cm 3.0 - 4.0 / 2.7 - 3.8 cm M-MODE Aortic Root Diameter MM 3.2 cm LA Systolic Diameter MM 4.1 cm LA Ao Ratio MM 1.3 MV E Point Septal Separation 0.8 cm AV Cusp Separation MM 1.4 cm DOPPLER MV Area PHT 5.3 cm??? Mitral E Point Velocity 86.7 cm/s Mitral A Point Velocity 74.5 cm/s Mitral E to A Ratio 1.2 MV Deceleration Time 143.0 ms MV E' Velocity 7.6 cm/s Mitral E to MV E' Ratio 11.3 TR Peak Velocity 265.5 cm/s TR Peak Gradient 28.2 mmHg Right Ventricular Systolic Press 33.2 mmHg FINDINGS Left Ventricle Left ventricular ejection fraction is estimated at 50 %. Mildly increased left ventricular wall thickness. Posterior hypokinesis. Right Ventricle Normal right ventricular size and function. Right Atrium Normal right atrial size. Left Atrium Normal left atrial size. Mitral Valve Structurally normal mitral valve. Mild mitral regurgitation. Aortic Valve Trileaflet aortic valve. Tricuspid Valve Structurally normal tricuspid valve. Pulmonic Valve Structurally normal pulmonic valve. Pericardium Normal pericardium. Aorta Normal size aortic root and proximal ascending aorta. CONCLUSIONS Borderline Normal LV size and systolic function Posterior wall hypokinesis Previewed by: Dr. Leonid Parra MD (Electronically Signed) Final Date: 29 January 2022 17:23
[2022-01-29] MEDS: ATORVASTATIN 80 MG TAB PO SCH (21:43)
[2022-01-29] MEDS: PANTOPRAZOLE 40 MG TABLET PO SCH (21:43)
[2022-01-29] MEDS: GABAPENTIN 300 MG CAP PO SCH (21:43)
--- NOTE | 2022-01-29 23:36 | HP ---
HISTORY AND PHYSICAL HISTORY OF PRESENT ILLNESS: A 56-year-old male came to the emergency room with onset of chest pain 20 minutes before arrival. He had dyspnea and diaphoresis. According to his doctor, came to the EMS, was found to have some ST elevation in inferior leads. He went to the heart catheterization lab and had a stent placed in RCA. He is currently in the ICU postop at this time. Allergies are negative. A 14-point review of systems otherwise is negative. Vital signs were reviewed. He had severe hypokalemia in the ER, for which potassium apparently has been bolused. He has been on and off blood pressure, cholesterol medicine for over the last year. His last seizure was 3 to 5 years ago. FAMILY HISTORY: Father with lung cancer. PHYSICAL EXAMINATION: GENERAL: No acute distress. HEAD: Normocephalic, atraumatic. Pupils equal, round, reactive. LUNGS: Showed mild wheeze. CARDIOVASCULAR: S1, S2. ABDOMEN: Soft, nontender. HEMATOLOGY: Negative for Homans. PSYCH: Fair mood and affect, status post inferior DE, status post right coronary artery angioplasty. Risk factor modifications prior to go home in a day or so. MMODL / IJN: [id number] /
[2022-01-30] MEDS: TIROFIBAN 12.5MG-250ML NS 250 ML IV SCH (06:31)
--- NOTE | 2022-01-30 08:20 | P.PN ---
Subjective Progress Note Date: 01/30/22 Principal diagnosis: Acute inferior ST elevation myocardial infarction This is a 56-year-old gentleman who was brought to the emergency department with a chest discomfort by ambulance. The patient somewhat is lethargic and poor historian. He was in his usual state of health until earlier today when he was started experiencing discomfort in the middle of the chest as a pressure on the chest with no radiation to the arms or neck or shoulders and no associated symptoms of dizziness or lightheadedness or any sweating or presyncope or syncope. Ambulance was called and EKG in the field showed inferior ST patient myocardial infarction. Subsequently the patient was brought to the emergency department where the repeated EKG confirmed the inferior STEMI. An emergent heart catheterization was performed and showed acute total occlusion of the mid RCA which was a stented with an excellent angiographic results with mild disease involving the left coronary system and normal left-sided filling pressures. The patient was chest pain-free by the end of her procedure. The procedure was performed from the right groin. The patient going to be admitted to the intensive. For 24 hours to 48 hours and he will have an echocardiogram to assess ejection fraction. No prior history of diabetes or hypertension or dyslipidemia according to the patient. No significant history of smoking. 01/29/2022 The patient was seen this morning. He is asymptomatic. No chest discomfort at this point. He is in normal sinus mechanism with sinus bradycardia. The pressure is marginal and he is requiring small doses of norepinephrine which I am going to wean him from. Beside that I'm going to stop the beta oswald was metoprolol in the light of low blood pressure and low heart rate. He remains on dual antiplatelet therapy along with high intensity statin. He is off the Aggrastat. An echocardiogram still pending. I would advise monitor the patient in the intensive care unit for additional 24 hours and continue the current medical regimen and follow-up with the patient. The right groin is soft and nontender and without any bruises January [id number] The patient was seen this morning. He is asymptomatic. He is hemodynamically stable. The pressure has been marginal but about 90 mmHg systolic. He underwent an echo which revealed normal LV function with no significant valvular abnormalities. He has been maintaining normal sinus mechanism. From the cardiac standpoint of view, the patient can be transferred out of the ICU for possible discharge tomorrow. Objective - Vital Signs Vital signs: Vital Signs Temp 98.0 F 01/30/22 04:00 Pulse 63 01/30/22 07:00 Resp 20 01/30/22 07:00 BP 103/65 01/30/22 07:00 Pulse Ox 91 L 01/30/22 07:39 FiO2 95 01/29/22 07:24 Intake & Output 01/29/22 01/30/22 01/30/22 18:59 06:59 18:59 Intake Total 1760 480 Output Total 1750 2145 Balance 10 -166 Weight 80.5 kg 81.3 kg Intake: IV 650 Sodium Chloride 0.9% 1, 650 000 ml In Empty Bag 1 bag @ 75 mls/hr IV .[id number] XU Rx#:[id number] Oral 1110 480 Output: Urine 1750 2145 Other: Voiding Method Urinal Urinal # Voids 0 0 0 # Bowel Movements 0 ABP, PAP, CO, CI - Last Documented Arterial Blood Pressure 138/63 - Labs CBC & Chem 7: 01/28/22 15:51 01/29/22 06:38
[2022-01-30] MEDS: NOREPINEPHRINE 4 MG in SODIUM CHLORIDE 0.9% 250 ML IV SCH (08:28)
[2022-01-30] MEDS: GABAPENTIN 300 MG CAP PO SCH ×3 (08:38→23:16)
[2022-01-30] MEDS: ASPIRIN 81 MG PO SCH (08:38)
[2022-01-30] MEDS: PRASUGREL 10 MG TAB PO SCH (08:38)
[2022-01-30] MEDS: PANTOPRAZOLE 40 MG TABLET PO SCH (23:16)
[2022-01-30] MEDS: ATORVASTATIN 80 MG TAB PO SCH (23:16)
--- NOTE | 2022-01-31 06:16 | P.PN ---
Subjective Progress Note Date: 01/31/22 Principal diagnosis: Acute inferior ST elevation myocardial infarction This is a 56-year-old gentleman who was brought to the emergency department with a chest discomfort by ambulance. The patient somewhat is lethargic and poor historian. He was in his usual state of health until earlier today when he was started experiencing discomfort in the middle of the chest as a pressure on the chest with no radiation to the arms or neck or shoulders and no associated symptoms of dizziness or lightheadedness or any sweating or presyncope or syncope. Ambulance was called and EKG in the field showed inferior ST patient myocardial infarction. Subsequently the patient was brought to the emergency department where the repeated EKG confirmed the inferior STEMI. An emergent heart catheterization was performed and showed acute total occlusion of the mid RCA which was a stented with an excellent angiographic results with mild disease involving the left coronary system and normal left-sided filling pressures. The patient was chest pain-free by the end of her procedure. The procedure was performed from the right groin. The patient going to be admitted to the intensive. For 24 hours to 48 hours and he will have an echocardiogram to assess ejection fraction. No prior history of diabetes or hypertension or dyslipidemia according to the patient. No significant history of smoking. 01/29/2022 The patient was seen this morning. He is asymptomatic. No chest discomfort at this point. He is in normal sinus mechanism with sinus bradycardia. The pressure is marginal and he is requiring small doses of norepinephrine which I am going to wean him from. Beside that I'm going to stop the beta oswald was metoprolol in the light of low blood pressure and low heart rate. He remains on dual antiplatelet therapy along with high intensity statin. He is off the Aggrastat. An echocardiogram still pending. I would advise monitor the patient in the intensive care unit for additional 24 hours and continue the current medical regimen and follow-up with the patient. The right groin is soft and nontender and without any bruises January [id number] The patient was seen this morning. He is asymptomatic. He is hemodynamically stable. The pressure has been marginal but about 90 mmHg systolic. He underwent an echo which revealed normal LV function with no significant valvular abnormalities. He has been maintaining normal sinus mechanism. From the cardiac standpoint of view, the patient can be transferred out of the ICU for possible discharge tomorrow. Whitley 17 of 2022 The patient was seen this morning. He is asymptomatic from a cardiovascular standpoint of view and he is hemodynamically stable. The echo showed preserved left ventricular systolic function. He has been maintaining normal sinus mechanism. From the cardiovascular standpoint of view, the patient can be discharged home. I had a discussion with him about the importance of being com pliant with the medications including dual antiplatelet therapy. I'll follow-up with the patient in a week. Objective - Vital Signs Vital signs: Vital Signs Temp 98.0 F 01/31/22 04:00 Pulse 65 01/31/22 04:00 Resp 16 01/31/22 04:00 BP 112/53 01/31/22 04:00 Pulse Ox 95 01/31/22 04:00 FiO2 95 01/29/22 07:24 Intake & Output 01/30/22 01/30/22 01/31/22 06:59 18:59 06:59 Intake Total 480 480 Output Total 2145 0 Balance -1665 480 Weight 81.3 kg Intake: Oral 480 480 Output: Urine 2145 0 Other: Voiding Method Urinal Urinal Urinal # Voids 0 0 1 # Bowel Movements 0 ABP, PAP, CO, CI - Last Documented Arterial Blood Pressure 138/63 - Constitutional General appearance: Present: no acute distress - Respiratory Respiratory: bilateral: CTA - Cardiovascular Rhythm: regular Heart sounds: normal: S1, S2 - Labs CBC & Chem 7: 01/28/22 15:51 01/29/22 06:38 Assessment and Plan Assessment: Assessment Inferior stenting Hypertension Dyslipidemia Plan The patient is asymptomatic with stable The patient can be discharged home He would not to be on beta oswald in the light of resting bradycardia Follow-up with the patient
[2022-01-31] MEDS: PRASUGREL 10 MG TAB PO SCH (08:37)
[2022-01-31] MEDS: ASPIRIN 81 MG PO SCH (08:38)
[2022-01-31] MEDS: GABAPENTIN 300 MG CAP PO SCH (08:38)
[2022-01-31 08:41] VITALS: BP 103/64; PULSE 72; RESP 17; TEMP 97.7
--- NOTE | 2022-01-31 23:14 | PN ---
PROGRESS NOTE SUBJECTIVE: Followup status post angioplasty of the right coronary artery for non-STEMI. SUBJECTIVE: CARDIOVASCULAR: S1 and S2. LUNGS: Clear. GI: Soft. HEMATOLOGY: Negative for Homans. PSYCH: Fair mood and affect. NEUROLOGIC: Alert and oriented x3. ASSESSMENT: Acute [id number] myocardial infarction status post percutaneous transluminal coronary angioplasty of the right coronary artery, chronic obstructive pulmonary disease . Prognosis is guarded. Follow up in the next 24 to 48 hours discharge home. He is asymptomatic at this time. MMODL / IJN: [id number] /
== END 2022-01-31 11:12 | disposition home or self-care (01) | DRG 247 ==
LOC: EC 15:38 → 2SICU 16:31 → 3SCARD 01-30 13:17
PROVIDERS: ADMIT Family Medicine; ATTEND Family Medicine
PROC: 4A023N7 Measurement of Cardiac Sampling and Pressure, Left Heart, Percutaneous Approach (ICD-10-PCS; principal; 2022-01-28 15:55)
PROC: B240ZZ3 Ultrasonography of Single Coronary Artery, Intravascular (ICD-10-PCS; principal; 2022-01-28 15:55)
PROC: 02C03ZZ Extirpation of Matter from Coronary Artery, One Artery, Percutaneous Approach (ICD-10-PCS; principal; 2022-01-28 15:55)
PROC: B2111ZZ Fluoroscopy of Multiple Coronary Arteries using Low Osmolar Contrast (ICD-10-PCS; principal; 2022-01-28 15:55)
PROC: 027035Z Dilation of Coronary Artery, One Artery with Two Drug-eluting Intraluminal Devices, Percutaneous Approach (ICD-10-PCS; principal; 2022-01-28 15:55)
DX: I21.19 ST elevation (STEMI) myocardial infarction involving other coronary artery of inferior wall (principal); I25.10 Atherosclerotic heart disease of native coronary artery without angina pectoris; I25.2 Old myocardial infarction; J44.9 Chronic obstructive pulmonary disease, unspecified; G40.909 Epilepsy, unspecified, not intractable, without status epilepticus; I10 Essential (primary) hypertension; E87.6 Hypokalemia; E78.5 Hyperlipidemia, unspecified; Z87.891 Personal history of nicotine dependence; R45.1 Restlessness and agitation; Z80.1 Family history of malignant neoplasm of trachea, bronchus and lung
CPT/HCPCS: 36415; 71045; 80048; 80053; 82330; 83735; 84132; 84484; 85025; 85610; 85730; 92978; 93005; 93306; 93458; 96374; 96375; 99291

== ENCOUNTER → 2022-04-24 | Outpatient (CLI) | payer OTHER ==
--- NOTE | 2022-04-24 10:41 | MR ---
EXAMINATION TYPE: MR cervical spine wo con DATE OF EXAM: 04/24/2022 COMPARISON: X-ray 03/27/2022 MRI 11/06/2014 HISTORY: SPONDYLOLISTHESIS, CERVICAL REGION TECHNIQUE: Multiplanar, multisequence images of the cervical spine were acquired without contrast. C2-C3: There is degenerative disc disease but no evidence of disc herniation or canal stenosis. Mild facet arthropathy. Neural foramina remain patent with mild left-sided foraminal encroachment C3-C4: broad-based disc osteophyte complex with uncovertebral joint spurring, greater on the right an d bilateral hypertrophic facet arthropathy results in moderate to severe right neuroforaminal stenosi s and mild spinal canal stenosis. C4-C5: Mild degenerative disc disease with moderate facet arthropathy and mild uncovertebral joint hy pertrophy. No canal stenosis or focal herniation. Neural foramina patent C5-C6: Severe degenerative disc disease with posterior spondylosis abutting the anterior margin of th e spinal cord resulting in canal stenosis. Moderate right and severe left foraminal encroachment. Dis c osteophyte complex protrudes posteriorly. Grade 1 retrolisthesis. C6-C7: Severe degenerative disc disease with broad-based disc bulging and posterior spondylosis. Unco vertebral joint hypertrophy with moderate bilateral foraminal encroachment and mild central stenosis. C7-T1: No evidence for degenerative disc disease. No disc bulge/herniation or protrusion. No Canal stenosis. Foramina are patent bilaterally. Cervical segments are intact. There is normal alignment. Cervical spinal cord is of normal signal. Craniovertebral junction relationships are within normal limits. Sphenoidal chronic sinusitis. IMPRESSION: 1. Multilevel degenerative disc disease with grade 1 retrolisthesis at C5-C6. Degenerative disc disea se at this level has progressed from prior exam with posterior disc osteophyte complex abutting the a nterior margin of the spinal cord and mild anterior mass effect upon the spinal cord. There is modera te central stenosis and bilateral foraminal encroachment. Findings have progressed from prior exam. 2. Degenerative disc disease and disc osteophyte complex at C6-C7 with mild central stenosis and bila teral foraminal encroachment. 3. Multilevel facet arthropathy and foraminal encroachment as discussed above
== END | disposition home or self-care (01) ==
LOC: RADMRIMAIN 09:29
PROVIDERS: ATTEND Orthopaedic Surgery
DX: M43.12 Spondylolisthesis, cervical region (principal); M48.02 Spinal stenosis, cervical region; M50.322 Other cervical disc degeneration at C5-C6 level; M25.78 Osteophyte, vertebrae; M47.812 Spondylosis without myelopathy or radiculopathy, cervical region; M99.71 Connective tissue and disc stenosis of intervertebral foramina of cervical region
CPT/HCPCS: 72141

== ENCOUNTER 2022-05-30 16:27 | Observation (INO) | payer OTHER ==
[2022-05-30] MEDS ORDERED: VANCOMYCIN IV PER PHARMACY 1 EACH MISC MISCELLANE PRN (17:00)
[2022-05-30] MEDS ORDERED: PIPERACILLIN-TAZOBACTAM 3.375 GM in SODIUM CHLORIDE 0.9% 100 ML IVPB STA (17:00)
[2022-05-30] MEDS ORDERED: SODIUM CHLORIDE 0.9% 1,000 ML IV ONE (17:14)
--- NOTE | 2022-05-30 17:19 | ED ---
General Adult HPI - General Chief complaint: Wound/Laceration Stated complaint: Post-op comp Time Seen by Provider: 05/30/22 16:45 Source: patient Mode of arrival: ambulatory Limitations: no limitations - History of Present Illness Initial comments: Patient is a 56-year-old male presenting with chief complaint of drainage from the right groin. Patient states that symptoms started yesterday. He noted pain and swelling to the area and then today noticed drainage. He also notes some mild right lower quadrant pain. He admits to intermittent nausea, no vomiting. No dysuria, hematuria, flank pain, diarrhea, chest pain, difficulty breathing. Patient also noted a small painful lump to the left axilla today. - Related Data Home Medications Medication Instructions Recorded Confirmed Gabapentin [Neurontin] 300 mg PO DIRECTED 01/28/22 05/30/22 Aspirin 81 mg PO DIRECTED 05/30/22 05/30/22 Atorvastatin [Lipitor] 80 mg PO DAILY 05/30/22 05/30/22 PARoxetine [Paxil] 20 mg PO DAILY 05/30/22 05/30/22 Pantoprazole [Protonix] 40 mg PO DAILY 05/30/22 05/30/22 Sildenafil Citrate 50 mg PO DAILY PRN 05/30/22 05/30/22 Allergies Allergy/AdvReac Type Severity Reaction Status Date / Time No Known Allergies Allergy Verified 05/30/22 19:44 Review of Systems ROS Statement: Those systems with pertinent positive or pertinent negative responses have been documented in the HPI. ROS Other: All systems not noted in ROS Statement are negative. Past Medical History Past Medical History: GERD/Reflux, Hyperlipidemia, Hypertension, Myocardial Infarction ([place]), Seizure Disorder Additional Past Medical History / Comment(s): states "has been off b/p,cholesterol,dilantin medication for a year",last seizure "2000 or 2001" History of Any Multi-Drug Resistant Organisms: None Reported Past Surgical History: Appendectomy, Back Surgery, Heart Catheterization With Stent Additional Past Surgical History / Comment(s): knee surgery, "back surgery in March to decompress and place two rods" Past Anesthesia/Blood Transfusion Reactions: No Reported Reaction Past Psychological History: Depression Smoking Status: Current every day smoker Past Alcohol Use History: Occasional Past Drug Use History: None Reported - Past Family History Mother Family Medical History: No Reported History Father Family Medical History: Cancer Additional Family Medical History / Comment(s): lung CA General Exam Limitations: no limitations General appearance: alert, in no apparent distress Head exam: Present: atraumatic, normocephalic, normal inspection Eye exam: Present: normal appearance Neck exam: Present: normal inspection Respiratory exam: Present: normal lung sounds bilaterally. Absent: respiratory distress, wheezes, rales, rhonchi, stridor Cardiovascular Exam: Present: regular rate, normal rhythm, normal heart sounds. Absent: systolic murmur, diastolic murmur, rubs, gallop, clicks Neurological exam: Present: alert, oriented X3, CN II-XII intact Psychiatric exam: Present: normal affect, normal mood Expanded Type of lesion: Present: abscess (Abscess of the perineum, induration and purulent drainage are noted) Course Vital Signs 05/30/22 05/30/22 16:39 19:09 Temperature 98.3 F Pulse Rate 90 72 Respiratory 18 18 Rate Blood Pressure 144/80 114/66 O2 Sat by Pulse 98 100 Oximetry - Reevaluation(s) Reevaluation #1: Patient reported feeling very itchy while receiving vancomycin. No difficulty breathing or swallowing. No hives noted. Order was placed for Benadryl, Pepcid, and Solu-Medrol 05/30/22 20:23 Medical Decision Making - Medical Decision Making Was pt. sent in by a medical professional or institution (BERNY Antunez, COURT SECURITY OFFICER, urgent care, hospital, or skilled nursing...) When possible be specific @ -[No] Did you speak to anyone other than the patient for history (EMS, parent, family, police, friend...)? What history was obtained from this source @ -[No] Did you review nursing and triage notes (agree or disagree)? Why? @ -[I reviewed and agree with nursing and triage notes] Were old charts reviewed (outside hosp., previous admission, EMS record, old EKG, old radiological studies, urgent care reports/EKG's, skilled nursing records)? Report findings @ -[No old charts were reviewed] Differential Diagnosis (chest pain, altered mental status, abdominal pain women, abdominal pain men, vaginal bleeding, weakness, fever, dyspnea, syncope, headache, dizziness, GI bleed, back pain, seizure, CVA, palpatations, mental health)? @ -Differential includes abscess, cellulitis, necrotizing fasciitis, this is no t an all inclusive list EKG interpreted by me (3pts min.). @ -[As above] X-rays interpreted by me (1pt min.). @ -[None done] CT interpreted by me (1pt min.). @ -No, radiologist report is reviewed. Medial right upper thigh subcutaneous edema extending into the right side of the scrotum and consistent with cellulitis. No drainable fluid collection. U/S interpreted by me (1pt. min.). @ -[None done] What testing was considered but not performed or refused? (CT, X-rays, U/S, labs)? Why? @ -[None] What meds were considered but not given or refused? Why? @ -[None] Did you discuss the management of the patient with other professionals (professionals i.e. , PA, COURT SECURITY OFFICER, lab, RT, psych nurse, clinical social worker, gas generator operator, teacher, chief contract officer, mental health case manager)? Give summary @ -[No] Was smoking cessation discussed for >3mins.? @ -[No] Was critical care preformed (if so, how long)? @ -[No] Were there social determinants of health that impacted care today? How? (Homelessness, low income, unemployed, alcoholism, drug addiction, transportation, low edu. Level, literacy, decrease access to med. care, long-term, rehab)? @ -[No] Was there de-escalation of care discussed even if they declined (Discuss DNR or withdrawal of care, Hospice)? DNR status @ -[No] What co-morbidities impacted this encounter? (DM, HTN, Smoking, COPD, CAD, Cancer, CVA, ARF, Chemo, Hep., AIDS, mental health diagnosis, sleep apnea, morbid obesity)? @ -[None] Was patient admitted / discharged? Hospital course, mention meds given and route, prescriptions, significant lab abnormalities, going to OR and other pertinent info. @ -Patient is a 56-year-old male presenting with chief complaint of drainage from the right groin. Patient had pain and swelling there starting yesterday, today he noticed drainage. He is afebrile. On physical examination there is a small amount of drainable fluid noted as well as an area of redness and induration near the scrotum. WBC 14.9. CMP is unremarkable. CT of the abdomen and pelvis shows cellulitis of the medial right upper thigh extending into the right side of the scrotum. No drainable fluid collection. Patient was given a dose of Zosyn and vancomycin. Patient began experiencing diffuse itching while receiving vancomycin, no difficulty breathing or swallowing. No notable hives and vitals were WNL. He was given Benadryl, Solu-Medrol, Pepcid. I spoke with Dr. Hamilton who accepted admission. Infectious disease was consulted per his request. Patient is agreeable with this plan. I discussed this case my attending Dr. Desir. Undiagnosed new problem with uncertain prognosis? @ -[No] Drug Therapy requiring intensive monitoring for toxicity (Heparin, Nitro, Insulin, Cardizem)? @ -[No] Were any procedures done? @ -[No] Diagnosis/symptom? @ -Cellulitis Acute, or Chronic, or Acute on Chronic? @ -Acute Uncomplicated (without systemic symptoms) or Complicated (systemic symptoms)? @ -Complicated Side effects of treatment? @ -[No] Exacerbation, Progression, or Severe Exacerbation? @ -[No] Poses a threat to life or bodily function? How? (Chest pain, [place], [place], pneumonia, PE, COPD, DKA, ARF, appy, cholecystitis, CVA, Diverticulitis, Homicidal, Suicidal, threat to staff... and all critical care pts) @ -Yes - Lab Data Result diagrams: 05/30/22 17:29 05/30/22 17:29 Lab Results 05/30/22 05/30/22 05/30/22 Range/Units 17:29 17:29 17:29 WBC 14.9 H (3.8-10.6) k/uL RBC 4.91 (4.30-5.90) m/uL Hgb 14.5 (13.0-17.5) gm/dL Hct 44.3 (39.0-53.0) % MCV 90.2 (80.0-100.0) fL MCH 29.6 (25.0-35.0) pg MCHC 32.8 (31.0-37.0) g/dL RDW 14.2 (11.5-15.5) % Plt Count 343 (150-450) k/uL MPV 7.2 Neutrophils % 71 % Lymphocytes % 19 % Monocytes % 5 % Eosinophils % 2 % Basophils % 1 % Neutrophils # 10.6 H (1.3-7.7) k/uL Lymphocytes # 2.9 (1.0-4.8) k/uL Monocytes # 0.7 (0-1.0) k/uL Eosinophils # 0.3 (0-0.7) k/uL Basophils # 0.1 (0-0.2) k/uL Sodium 138 (137-145) mmol/L Potassium 4.0 (3.5-5.1) mmol/L Chloride 103 (98-107) mmol/L Carbon Dioxide 28 (22-30) mmol/L Anion Gap 7 mmol/L BUN 11 (9-20) mg/dL Creatinine 0.68 (0.66-1.25) mg/dL Est GFR (CKD-EPI)AfAm >90 (>60 ml/min/1.73 sqM) Est GFR (CKD-EPI)NonAf >90 (>60 ml/min/1.73 sqM) Glucose 92 (74-99) mg/dL Plasma Lactic Acid Semaj 0.8 (0.7-2.0) mmol/L Calcium 8.7 (8.4-10.2) mg/dL Total Bilirubin 0.5 (0.2-1.3) mg/dL AST 24 (17-59) U/L ALT 27 (4-49) U/L Alkaline Phosphatase 97 (38-126) U/L Total Protein 7.3 (6.3-8.2) g/dL Albumin 4.0 (3.5-5.0) g/dL Disposition Clinical Impression: Cellulitis of groin Disposition: ADMITTED IP TO THIS HOSP Condition: Serious Time of Disposition: 20:05 Decision to Admit Reason: Admit from EC Decision Date: 05/30/22 Decision Time: 20:05
[2022-05-30 17:39] LABS: Basophils # (A) 0.1 k/uL (0-0.2); Basophils % (A) 1 %; Eosinophils # (A) 0.3 k/uL (0-0.7); Eosinophils % (A) 2 %; HCT 44.3 % (39.0-53.0); HGB 14.5 gm/dL (13.0-17.5); Lymphocytes # (A) 2.9 k/uL (1.0-4.8); Lymphocytes % (A) 19 %; MCH 29.6 pg (25.0-35.0); MCHC 32.8 g/dL (31.0-37.0); MCV 90.2 fL (80.0-100.0); Mean Platelet Volume 7.2; Monocytes # (A) 0.7 k/uL (0-1.0); Monocytes % (A) 5 %; Neutrophils # (A) 10.6 k/uL (1.3-7.7); Neutrophils % (A) 71 %; Platelet Count 343 k/uL (150-450); RBC 4.91 m/uL (4.30-5.90); RDW 14.2 % (11.5-15.5); WBC 14.9 k/uL (3.8-10.6)
[2022-05-30 17:53] LABS: ALT 27 U/L (4-49); AST 24 U/L (17-59); African American GFR (CKD) >90 (>60 ml/min/1.73 sqM); Alkaline Phosphatase 97 U/L (38-126); Anion Gap 7 mmol/L; Blood Urea Nitrogen 11 mg/dL (9-20); Calcium 8.7 mg/dL (8.4-10.2); Carbon Dioxide 28 mmol/L (22-30); Chloride 103 mmol/L (98-107); Glucose 92 mg/dL (74-99); Non-African American GFR(CKD) >90 (>60 ml/min/1.73 sqM); Sodium 138 mmol/L (137-145); Total Bilirubin 0.5 mg/dL (0.2-1.3); Total Protein 7.3 g/dL (6.3-8.2)
[2022-05-30] MEDS ORDERED: VANCOMYCIN 1,500 MG in SODIUM CHLORIDE 0.9% 500 ML 500 ML IVPB ONE (18:00)
[2022-05-30] MEDS ORDERED: VANCOMYCIN 1,750 MG in SODIUM CHLORIDE 0.9% 500 ML 500 ML IVPB ONE (18:00)
--- NOTE | 2022-05-30 19:20 | CT ---
EXAMINATION TYPE: CT abdomen pelvis w con DATE OF EXAM: 05/30/2022 COMPARISON: None HISTORY: RT groin abscess. Pt states he had stent placement back in January CT DLP: 893.4 mGycm Automated exposure control for dose reduction was used. CONTRAST: Performed with IV Contrast, patient injected with 100 mL of Isovue 300. Images obtained from the diaphragm to the floor of the pelvis with the IV contrast. There is some mild linear infiltrate and atelectasis right posterior lung base. Heart size is normal. No pericardial effusion. Liver and spleen are intact. Stomach is intact. Gallbladder appears normal. There is no pancreatic mass. There is normal contrast opacification of the kidneys. No hydronephrosi s. Ureters are not dilated. No retroperitoneal adenopathy. Appendix is medial and appears normal. The bladder distends smoothly. No internal hernia. No free fluid in the pelvis. There are some enlarged right inguinal lymph nodes and the largest measures 1.6 cm in diameter. No fluid collection seen. The re is some mild fat stranding in the medial right upper thigh extending into the scrotum. There is no mesenteric edema. No ascites or free air. No sign of a bowel obstruction. There is posterior fusion surgery at L3-4 with rods and screws. Lumbar vertebra have normal alignment . No compression fracture. Bony pelvis is intact. The hip joints are intact sacroiliac joints appear intact. IMPRESSION: Normal appendix. There are a few enlarged right inguinal lymph nodes. No evidence of an abscess. Medial right upper thigh subcutaneous edema extending into the right side of the scrotum and consiste nt with cellulitis. No drainable fluid collection.
[2022-05-30] MEDS ORDERED: methylPREDNISolone SOD SUCCI 125 MG/2 ML VIAL IV STA (19:57)
[2022-05-30] MEDS ORDERED: diphenhydrAMINE 50 MG/ML 1 ML VIAL IVP STA (19:57)
[2022-05-30] MEDS ORDERED: FAMOTIDINE 20 MG/2 ML VIAL IV STA (19:57)
[2022-05-30] MEDS ORDERED: IBUPROFEN 400 MG TAB PO PRN (20:10)
[2022-05-30] MEDS ORDERED: MORPHINE SULFATE 4 MG/ML SYRINGE IV PRN (20:10)
[2022-05-30] MEDS ORDERED: ONDANSETRON 4 MG/2 ML VIAL IVP PRN (20:10)
[2022-05-30] MEDS ORDERED: ACETAMINOPHEN TAB 325 MG TAB PO PRN (20:10)
[2022-05-30] MEDS ORDERED: KETOROLAC 15 MG/ML 1 ML VIAL IVP PRN (20:10)
[2022-05-30] MEDS ORDERED: NALOXONE 0.4 MG/ML 1 ML VIAL IV PRN (20:10)
[2022-05-30] MEDS ORDERED: NON FORMULARY DRUG (Sildenafil Citrate [Sildenafil Citrate] 50 MG Tablet) PO PRN (22:14)
[2022-05-31 03:17] LABS: Appearance,Urine Clear (Clear); Bilirubin,Urine Negative (Negative); Blood,Urine Negative (Negative); Color,Urine Light Yellow; Glucose,Urine (UA) Negative (Negative); Ketones,Urine Negative (Negative); Leukocyte Esterase,Urine Negative (Negative); Nitrite,Urine Negative (Negative); Protein,Urine Negative (Negative); Specific Gravity,Urine 1.036 (1.001-1.035); Urobilinogen,Urine <2.0 mg/dL (<2.0)
[2022-05-31] MEDS ORDERED: VANCOMYCIN 1,250 MG in SODIUM CHLORIDE 0.9% 250 ML IVPB SCH (06:00)
[2022-05-31] MEDS: PANTOPRAZOLE 40 MG TABLET PO SCH (06:22)
[2022-05-31] MEDS: PARoxetine 20 MG TAB PO SCH (08:50)
[2022-05-31] MEDS: ATORVASTATIN 80 MG TAB PO SCH (08:50)
[2022-05-31] MEDS ORDERED: AMPICILLIN-SULBACTAM 3 GM in SODIUM CHLORIDE 0.9% 100 ML IVPB SCH (16:00)
[2022-05-31] MEDS: VANCOMYCIN 1,250 MG in SODIUM CHLORIDE 0.9% 250 ML IVPB SCH (17:24)
[2022-05-31] MEDS: NICOTINE 21MG/24HR PATCH TRANSDERM SCH (17:24)
--- NOTE | 2022-05-31 22:34 | P.CONS ---
History of Present Illness - Reason for Consult Consult date: 05/31/22 Right groin abscess Requesting physician: Edy Gardner - Chief Complaint Right groin pain and drainage x few days - History of Present Illness Patient is a 56 year old male with a past medical history significant for hypertension hyperlipidemia [place] seizure disorder GERD, patient mentioned recently he developed a pimple on the posterior scallop area with the patient said that he squeezed the poison out and subsequently the area started to heal patient is now presenting to the hospital with right groin area swelling and redness that apparently has been getting worse for the last few days denies any history of any trauma has been complaining of some dull aching pain 2-3 out of 10 and no radiation and did have some purulent drainage denies high-grade fever did have some chills with these symptoms the patient was evaluated by the ER physician on arrival to the ER, patient did have low-grade fever of 99.8F, patient did have a white count of 14.9 with a left shift kidney function has been normal liver enzymes are normal urine has been negative, blood cultures obtained which are currently pending patient did have a CT of abdominal pelvis mentioned right groin lymphadenopathy also medial right upper thigh subcutaneous edema extending into the right side of the scrotum consistent with cellulitis cultures were obtained by the nursing staff this morning, patient was started on vancomycin and the hospital infectious disease was consulted for further management of antibiotic therapy Review of Systems Positive point has been mentioned in the HPI rest of the systems are negative Past Medical History Past Medical History: GERD/Reflux, Hyperlipidemia, Hypertension, Myocardial Inf arction ([place]), Seizure Disorder Additional Past Medical History / Comment(s): states "has been off b/p,cholesterol,dilantin medication for a year",last seizure "2000 or 2001" Last Myocardial Infarction Date:: 01/28/22 History of Any Multi-Drug Resistant Organisms: None Reported Past Surgical History: Back Surgery, Heart Catheterization With Stent Additional Past Surgical History / Comment(s): knee surgery, "back surgery in March to decompress and place two rods" Past Anesthesia/Blood Transfusion Reactions: No Reported Reaction Date of Last Stent Placement:: 01/28/22 Past Psychological History: Depression Smoking Status: Current every day smoker Past Alcohol Use History: Occasional Additional Past Alcohol Use History / Comment(s): Current smoker, started smoking at "10 years old" Past Drug Use History: None Reported - Past Family History Mother Family Medical History: No Reported History Father Family Medical History: Cancer Additional Family Medical History / Comment(s): lung CA Medications and Allergies Home Medications Medication Instructions Recorded Confirmed Type Gabapentin [Neurontin] 300 mg PO DIRECTED 01/28/22 05/30/22 History Aspirin 81 mg PO DIRECTED 05/30/22 05/30/22 History Atorvastatin [Lipitor] 80 mg PO DAILY 05/30/22 05/30/22 History PARoxetine [Paxil] 20 mg PO DAILY 05/30/22 05/30/22 History Pantoprazole [Protonix] 40 mg PO DAILY 05/30/22 05/30/22 History Sildenafil Citrate 50 mg PO DAILY PRN 05/30/22 05/30/22 History Allergies Allergy/AdvReac Type Severity Reaction Status Date / Time No Known Allergies Allergy Verified 05/30/22 19:44 Physical Exam Vitals: Vital Signs Temp Pulse Pulse Resp BP BP Pulse Ox 05/31/22 08:00 97.9 F 64 17 114/73 94 L 05/31/22 00:47 97.4 F L 63 15 103/66 96 05/30/22 21:29 99.8 F H 80 15 99/62 96 05/30/22 19:09 72 18 114/66 100 05/30/22 16:39 98.3 F 90 18 144/80 98 Intake and Output 05/30/22 05/31/22 05/31/22 22:59 06:59 14:59 Output Total 600 Balance -600 Output: Urine 600 Other: Voiding Method Toilet Urinal Weight 74.707 kg 74.707 kg GENERAL DESCRIPTION: Middle-aged male lying in bed, no distress. No tachypnea or accessory muscle of respiration use. HEENT: Shows Pallor , no scleral icterus. Oral mucous membrane is dry. No pharyngeal erythema or thrush NECK: Trachea central, no thyromegaly. LUNGS: Unlabored breathing. Clear to auscultation anteriorly. No wheeze or crackle. HEART: S1, S2, regular rate and rhythm. No loud murmur ABDOMEN: Soft, no tenderness , guarding or rigidity, no organomegaly : Patient did have right groin swelling and evidence of purulent drainage from the right scrotal area EXTREMITIES: No edema of feet. SKIN: No rash, no masses palpable. NEUROLOGICAL: The patient is awake, alert, oriented x3, mood and affect normal. Results CBC & Chem 7: 05/30/22 17:29 05/30/22 17:29 Labs: Abnormal Lab Results - Last 24 Hours (Table) 05/30/22 05/31/22 Range/Units 17:29 03:06 WBC 14.9 H (3.8-10.6) k/uL Neutrophils # 10.6 H (1.3-7.7) k/uL Ur Specific [place] 1.036 H (1.001-1.035) Assessment and Plan (1) Cellulitis of groin Current Visit: Yes Status: Acute Code(s): L03.314 - CELLULITIS OF GROIN SNOMED Code(s): 63444040 Plan: 1patient with right groin/scrotal area abscess and cellulitis in this patient currently with no evidence of Ayleen's gangrene, patient with a history of pimples I clinically suspicious for staphylococcal infection especially community associated MRSA 2urology has been consulted for drainage of this abscess and case was discussed with rn clinical documentation urologist on the phone 3Vancomycin pharmacy to dose target trough of 15 while watching kidney function and Vanco trough closely We will follow on clinical condition and cultures to further adjust medication if needed Thank you for this consultation will follow this patient with you Time with Patient: Greater than 30
[2022-06-01] MEDS: VANCOMYCIN 1,250 MG in SODIUM CHLORIDE 0.9% 250 ML IVPB SCH ×3 (00:17→17:08)
[2022-06-01] MEDS: AMPICILLIN-SULBACTAM 3 GM in SODIUM CHLORIDE 0.9% 100 ML IVPB SCH ×2 (00:17→06:35)
[2022-06-01] MEDS ORDERED: VANCOMYCIN TROUGH DUE 1 EACH MISC MISCELLANE ONE (08:00)
[2022-06-01] MEDS: NICOTINE 21MG/24HR PATCH TRANSDERM SCH (08:29)
[2022-06-01] MEDS: PARoxetine 20 MG TAB PO SCH (08:29)
[2022-06-01] MEDS: ATORVASTATIN 80 MG TAB PO SCH (08:29)
[2022-06-01] MEDS: PANTOPRAZOLE 40 MG TABLET PO SCH (08:29)
[2022-06-01 09:19] LABS: African American GFR (CKD) >90 (>60 ml/min/1.73 sqM); Calcium 8.2 mg/dL (8.4-10.2); Carbon Dioxide 32 mmol/L (22-30); Non-African American GFR(CKD) >90 (>60 ml/min/1.73 sqM)
[2022-06-01 09:20] LABS: Chloride 107 mmol/L (98-107); Glucose 127 mg/dL (74-99)
[2022-06-01 09:21] LABS: Anion Gap 3 mmol/L; Blood Urea Nitrogen 15 mg/dL (9-20); Sodium 142 mmol/L (137-145)
--- NOTE | 2022-06-01 12:19 | P.PN ---
Subjective Progress Note Date: 06/01/22 Principal diagnosis: Right inguinal and scrotal abscess cellulitis Patient is a 56 year old male with a past medical history significant for hypertension hyperlipidemia [place] seizure disorder GERD, patient mentioned recently he developed a pimple on the posterior scalp area which the patient said that he squeezed, subsequently developing swelling and redness to the right groin area and drainage has been diagnosed with a cellulitis and abscess. On today's evaluation that is 06/01/2022, the patient denies having any fever or any chills overall discomfort or drainage to the right groin and scrotal area has decreased in intensity no chest pain shortness with occasional cough no abdominal pain no diarrhea Objective - Vital Signs Vital signs: Vital Signs Temp 97.3 F L 06/01/22 01:28 Pulse 66 06/01/22 07:18 Resp 16 06/01/22 07:18 BP 128/73 06/01/22 07:18 Pulse Ox 97 06/01/22 07:18 FiO2 Intake & Output 05/31/22 06/01/22 06/01/22 18:59 06:59 18:59 Intake Total 250 Output Total 1550 250 Balance -1300 -250 Intake: Intake, IV Titration 250 Amount Vancomycin 1,250 mg In 250 Sodium Chloride 0.9% 250 ml @ 125 mls/hr IVPB Q8H [facility] Rx#:[id number] Output: Urine 1550 250 Other: # Voids 4 - Exam GENERAL DESCRIPTION: A middle-age male lying in bed in no distress RESPIRATORY SYSTEM: Unlabored breathing , decreased breath sounds at bases HEART: S1 S2 regular rate and rhythm , ABDOMEN: Soft , no tenderness : Right groin and scrotal area still have some induration no drainage was noticed today EXTREMITIES: No edema feet - Labs CBC & Chem 7: 05/30/22 17:29 06/01/22 08:45 Labs: Abnormal Lab Results - Last 24 Hours (Table) 06/01/22 Range/Units 08:45 Carbon Dioxide 32 H (22-30) mmol/L Creatinine 0.62 L (0.66-1.25) mg/dL Glucose 127 H (74-99) mg/dL Calcium 8.2 L (8.4-10.2) mg/dL Microbiology - Last 24 Hours (Table) 05/31/22 10:40 Gram Stain - Preliminary Groin Wound Culture - Preliminary Presumptive MRSA 05/30/22 17:29 Blood Culture - Preliminary Blood No Growth after 24 hours 05/31/22 10:40 Anaerobic Culture - Preliminary Groin Assessment and Plan (1) Cellulitis of groin Current Visit: Yes Status: Acute Code(s): L03.314 - CELLULITIS OF GROIN SNOMED Code(s): 28792701 Plan: 1patient with right groin/scrotal area abscess and cellulitis in this patient currently with no evidence of Ayleen's gangrene, patient with a history of pimples I clinically suspicious for staphylococcal infection especially community associated MRSA 2urology has been consulted for drainage of this abscess awaiting the recommendation 3local cultures currently growing presumptive MRSA for the patient will continue with Vancomycin pharmacy to dose target trough of 15 while watching kidney function and Vanco trough closely Time with Patient: Less than 30
[2022-06-01 13:23] VITALS: BMI 24.3
[2022-06-01 13:23] LABS: Basophils # (A) 0.1 k/uL (0-0.2); Basophils % (A) 0 %; Eosinophils # (A) 0.1 k/uL (0-0.7); Eosinophils % (A) 1 %; HCT 38.7 % (39.0-53.0); HGB 12.4 gm/dL (13.0-17.5); Lymphocytes # (A) 4.2 k/uL (1.0-4.8); Lymphocytes % (A) 25 %; MCH 30.3 pg (25.0-35.0); MCV 94.9 fL (80.0-100.0); Mean Platelet Volume 8.6; Monocytes # (A) 0.5 k/uL (0-1.0); Monocytes % (A) 3 %; Neutrophils # (A) 11.6 k/uL (1.3-7.7); Neutrophils % (A) 70 %; Platelet Count 353 k/uL (150-450); RBC 4.07 m/uL (4.30-5.90); RDW 14.7 % (11.5-15.5); WBC 16.7 k/uL (3.8-10.6)
--- NOTE | 2022-06-01 21:01 | HP ---
HISTORY AND PHYSICAL HISTORY OF PRESENT ILLNESS: A 56-year-old white male, came in with abscess in the right groin area, for which he has been on IV vancomycin since admission. It broke over 2 days ago with decrease of swelling and obtundation in the right groin. He was admitted to the hospital and put on vancomycin. HOME MEDICINES: 1. Lipitor 80 daily. 2. Aspirin 81 daily. 3. Gabapentin 300 t.i.d. 4. Paxil 20 daily. 5. Protonix 40 daily. 6. Sildenafil p.r.n. PAST MEDICAL HISTORY: GERD, dyslipidemia, hypertension, myocardial infarction, and seizure disorder. REVIEW OF SYSTEMS: Fourteen-point review of systems is otherwise negative. FAMILY HISTORY: Reviewed. PHYSICAL EXAMINATION: VITAL SIGNS: Temperature 98.3, pulse 72 to 90, respirations 16 to 18, blood pressure 114 to 144 over 60s to 80s, O2 98% to 100%. CARDIOVASCULAR: S1 and S2. LUNGS: Clear. GI: Soft. : Has mild groin swelling, improved with IV antibiotics. Decrease in swelling about 1 cm x 2 cm. ASSESSMENT: Resolving ruptured abscess, presumptive methicillin-resistant Staphylococcus aureus, right groin. He remains on IV vancomycin. Switch to Bactrim. Possible discharge home in the morning as he wants to go home soon. Prognosis is guarded. He was seen on 05/31/2022. MMODL / IJN: [id number] /
--- NOTE | 2022-06-01 21:46 | P.GSCN ---
History of Present Illness Consult date: 06/01/22 Reason for Consult: right scrotal cellulitis and Hidradenitis History of present illness: This is 56 yo male that presented to the hospital with right sided groin erythema and induration for the past few days. He also started noticing drainage from the indurated area along the groin. He Denies any fever/chills. indicated he has similar symptoms along his armpit and the scalp within the past few years. On presentation he underwent a CT abd/pelvis which showed evidence of edema along the right groin and thigh but no fluid collection is identified Review of Systems - Constitutional Denies fever, Denies weight loss - Cardiovascular Denies chest pain, Denies shortness of breath - Respiratory Denies cough, Denies 7 - Gastrointestinal Reports as per HPI - Genitourinary Denies dysuria, Denies hematuria - Integumentary Denies rash, Denies unusual bruising - Neurological Denies headaches, Denies syncope Past Medical History Past Medical History: GERD/Reflux, Hyperlipidemia, Hypertension, Myocardial Infarction ([place]), Seizure Disorder Additional Past Medical History / Comment(s): states "has been off b/p,cholesterol,dilantin medication for a year",last seizure "2000 or 2001" Last Myocardial Infarction Date:: 01/28/22 History of Any Multi-Drug Resistant Organisms: None Reported Past Surgical History: Back Surgery, Heart Catheterization With Stent Additional Past Surgical History / Comment(s): knee surgery, "back surgery in March to decompress and place two rods" Past Anesthesia/Blood Transfusion Reactions: No Reported Reaction Date of Last Stent Placement:: 01/28/22 Past Psychological History: Depression Smoking Status: Current every day smoker Past Alcohol Use History: Occasional Additional Past Alcohol Use History / Comment(s): Current smoker, started smoking at "10 years old" Past Drug Use History: None Reported - Past Family History Mother Family Medical History: No Reported History Father Family Medical History: Cancer Additional Family Medical History / Comment(s): lung CA Medications and Allergies Home Medications Medication Instructions Recorded Confirmed Type Gabapentin [Neurontin] 300 mg PO DIRECTED 01/28/22 05/30/22 History Aspirin 81 mg PO DIRECTED 05/30/22 05/30/22 History Atorvastatin [Lipitor] 80 mg PO DAILY 05/30/22 05/30/22 History PARoxetine [Paxil] 20 mg PO DAILY 05/30/22 05/30/22 History Pantoprazole [Protonix] 40 mg PO DAILY 05/30/22 05/30/22 History Sildenafil Citrate 50 mg PO DAILY PRN 05/30/22 05/30/22 History Allergies Allergy/AdvReac Type Severity Reaction Status Date / Time No Known Allergies Allergy Verified 05/30/22 19:44 Surgical - Exam Vital Signs Temp Pulse Resp BP Pulse Ox 98.3 F 90 18 144/80 98 05/30/22 16:39 05/30/22 16:39 05/30/22 16:39 05/30/22 16:39 05/30/22 16:39 - General no distress, no pain - Eyes normal ocular movement, no pale - ENT normal nares, normal mucosa - Respiratory normal expansion, normal respiratory effort - Abdomen Abdomen: soft, non tender - Genitourinary indurated area along the right groin/scrotum consistent with hidradenitis, actively draining - Psychiatric oriented to time, oriented to person, oriented to place Results - Labs 06/01/22 08:45 06/01/22 08:45 Abnormal Lab Results - Last 24 Hours (Table) 06/01/22 06/01/22 Range/Units 08:45 08:45 WBC 16.7 H (3.8-10.6) k/uL RBC 4.07 L (4.30-5.90) m/uL Hgb 12.4 L (13.0-17.5) gm/dL Hct 38.7 L (39.0-53.0) % Neutrophils # 11.6 H (1.3-7.7) k/uL Carbon Dioxide 32 H (22-30) mmol/L Creatinine 0.62 L (0.66-1.25) mg/dL Glucose 127 H (74-99) mg/dL Calcium 8.2 L (8.4-10.2) mg/dL Microbiology - Last 24 Hours (Table) 05/30/22 17:29 Blood Culture - Preliminary Blood No Growth after 48 hours 05/31/22 10:40 Gram Stain - Preliminary Groin Wound Culture - Preliminary Presumptive MRSA 05/31/22 10:40 Anaerobic Culture - Preliminary Groin Diabetes panel 06/01/22 Range/Units 08:45 Sodium 142 (137-145) mmol/L Potassium 4.0 (3.5-5.1) mmol/L Chloride 107 (98-107) mmol/L Carbon Dioxide 32 H (22-30) mmol/L BUN 15 (9-20) mg/dL Creatinine 0.62 L (0.66-1.25) mg/dL Glucose 127 H (74-99) mg/dL Calcium 8.2 L (8.4-10.2) mg/dL Calcium panel 06/01/22 Range/Units 08:45 Calcium 8.2 L (8.4-10.2) mg/dL Pituitary panel 06/01/22 Range/Units 08:45 Sodium 142 (137-145) mmol/L Potassium 4.0 (3.5-5.1) mmol/L Chloride 107 (98-107) mmol/L Carbon Dioxide 32 H (22-30) mmol/L BUN 15 (9-20) mg/dL Creatinine 0.62 L (0.66-1.25) mg/dL Glucose 127 H (74-99) mg/dL Calcium 8.2 L (8.4-10.2) mg/dL Adrenal panel 06/01/22 Range/Units 08:45 Sodium 142 (137-145) mmol/L Potassium 4.0 (3.5-5.1) mmol/L Chloride 107 (98-107) mmol/L Carbon Dioxide 32 H (22-30) mmol/L BUN 15 (9-20) mg/dL Creatinine 0.62 L (0.66-1.25) mg/dL Glucose 127 H (74-99) mg/dL Calcium 8.2 L (8.4-10.2) mg/dL Assessment and Plan Assessment: 56 yo male admitted to the hospital with right sided hidradenitis, on evaluation it's spontaneously draining, no focal abscess is appreciated but rather draining tracts. At this point it's spontaneously draining and I dont appreciate any focal area that require I&D. Recommend continue IV abx, will continue to follow along.
[2022-06-01] MEDS: SULFAMETHOX-TMP 800-160MG 1 EACH TAB PO SCH (21:53)
[2022-06-02] MEDS: VANCOMYCIN 1,250 MG in SODIUM CHLORIDE 0.9% 250 ML IVPB SCH ×3 (01:05→17:28)
--- NOTE | 2022-06-02 01:58 | PN ---
PROGRESS NOTE SUBJECTIVE: He has a presumptive MRSA infection in the right groin. He has had fluctuance around the right groin area to the lateral of the scrotum on the right side. OBJECTIVE: CARDIOVASCULAR: S1, S2. LUNGS: Clear. GI: Soft. : Has some mild fluctuance of the right scrotal area and the medial area. ASSESSMENT AND PLAN: 1. Methicillin-resistant Staphylococcus aureus abscess versus cellulitis of the groin. 2. Preop cervical radiculopathy. 3. Chronic obstructive pulmonary disease. 4. Nicotine addiction. Continue with vancomycin. As his wound has improved, no surgery is needed. The wound in a couple of days. MMODL / IJN: [id number] /
[2022-06-02] MEDS: PANTOPRAZOLE 40 MG TABLET PO SCH (06:32)
[2022-06-02] MEDS: ATORVASTATIN 80 MG TAB PO SCH (07:55)
[2022-06-02] MEDS: SULFAMETHOX-TMP 800-160MG 1 EACH TAB PO SCH ×2 (07:55→20:59)
[2022-06-02] MEDS: PARoxetine 20 MG TAB PO SCH (07:55)
[2022-06-02] MEDS: NICOTINE 21MG/24HR PATCH TRANSDERM SCH (07:55)
[2022-06-02 08:53] LABS: Basophils # (A) 0.06 X 10*3/uL (0.00-0.10); Basophils % (A) 0.4 %; Eosinophils # (A) 0.23 X 10*3/uL (0.04-0.35); Eosinophils % (A) 1.7 %; HCT 39.9 % (39.6-50.0); HGB 12.7 g/dL (13.0-17.0); Immature Grans, Automated 0.4 %; Lymphocytes # (A) 4.69 X 10*3/uL (0.90-5.00); Lymphocytes % (A) 34.5 %; MCHC 31.8 g/dL (32.0-37.0); MCV 94.1 fL (80.0-97.0); Mean Platelet Volume 10.3 fL (9.5-12.2); Monocytes # (A) 0.68 X 10*3/uL (0.20-1.00); NRBC Per 100 WBC 0 /100 WBCS (0.0-0.0); Neutrophils # (A) 7.88 X 10*3/uL (1.80-7.70); Platelet Count 404 X 10*3/uL (140-440); RBC 4.24 X 10*6/uL (4.40-5.60); RDW 14.5 % (11.5-14.5); WBC 13.59 X 10*3/uL (4.50-10.00)
--- NOTE | 2022-06-02 10:29 | P.PN ---
Subjective Progress Note Date: 06/02/22 Principal diagnosis: Cellulitis Patient is a 56-year-old male with a past medical history significant for hypertension, hyperlipidemia, [place], seizure disorder, and GERD. He presented to the emergency department on 05/30/22 with complaints of right groin pain, swelling, and drainage. He underwent a CT abdomen/pelvis which showed evidence of edema along the right groin and thigh but no fluid collection was identified. No evidence of Ayleen's gangrene. Objective - Vital Signs Vital signs: Vital Signs Temp 98.1 F 06/02/22 07:17 Pulse 70 06/02/22 07:17 Resp 15 06/02/22 07:17 BP 145/76 06/02/22 07:17 Pulse Ox 93 L 06/02/22 07:17 FiO2 Intake & Output 06/01/22 06/02/22 06/02/22 18:59 06:59 18:59 Intake Total 1080 Output Total 1400 Balance 1080 -1400 Weight 74.707 kg Intake: Oral 1080 Output: Urine 1400 Other: Voiding Method Toilet Toilet Urinal Urinal # Voids 3 - Exam General: Well developed, well nourished. HEENT: Head is atraumatic, normocephalic. Lungs: Respirations even and nonlabored. On room air Abdomen/GI: Soft. No guarding, rigidity, or abdominal tenderness. : Right groin/scrotum erythema and edema. Right groin indurated area with a small amount of purulent drainage expressed through small opening; no fluctuance or crepitus. Skin: Warm and dry Neurologic: Awake, alert and oriented times 3. CN II-XII grossly intact. No focal deficits. Psychiatric: Appropriate mood and affect. - Labs CBC & Chem 7: 06/02/22 04:22 06/01/22 08:45 Labs: Abnormal Lab Results - Last 24 Hours (Table) 06/01/22 06/02/22 Range/Units 08:45 04:22 WBC 16.7 H 13.59 H (3.8-10.6) k/uL RBC 4.07 L 4.24 L (4.30-5.90) m/uL Hgb 12.4 L 12.7 L (13.0-17.5) gm/dL Hct 38.7 L (39.0-53.0) % MCHC 31.8 L (32.0-37.0) g/dL Immature Gran # 0.05 H (0.00-0.04) X 10*3/uL Neutrophils # 11.6 H 7.88 H (1.3-7.7) k/uL Microbiology - Last 24 Hours (Table) 05/30/22 17:29 Blood Culture - Preliminary Blood No Growth after 48 hours 05/31/22 10:40 Gram Stain - Preliminary Groin Wound Culture - Preliminary Presumptive MRSA Assessment and Plan Assessment: The patient is afebrile, vital signs stable. WBC 16.7, blood cultures negative, right groin culture growing MRSA. Upon evaluation the right groin abscess is draining spontaneously and a small amount of purulent drainage was able to be expressed. ID followoing. (1) Cellulitis of groin Current Visit: Yes Status: Acute Code(s): L03.314 - CELLULITIS OF GROIN SNOMED Code(s): 37697689 Plan: - Continue antibiotics per ID's recommendations - I&D was not required at this time - Continue to observe right groin abscess drainage - Dressing changes as needed Impression and plan of care have been directed as dictated by the signing physician. Roxann Preston nurse practitioner acting as scribe for signing physician. Roxann Preston [facility] Palliative Care/Urology [facility] [id number] Email: [email or web address]
[2022-06-02] MEDS ORDERED: LIDOCAINE 1% INJ 10MG/ML (5 ML VIAL-PF) SQ ONE (12:55)
--- NOTE | 2022-06-02 13:21 | IR ---
PICC LINE PLACEMENT: HISTORY: Infection requiring long-term antibiotic therapy PROCEDURE: Ultrasound and fluoroscopic guidance of PICC line placement. COMPLICATIONS: None ANESTHESIA: 1. 1% Lidocaine locally. FINDINGS/TECHNIQUE: The procedure was explained to the patient. The risks, complications, benefits and alternatives were discussed and any questions were answered. Informed consent was obtained. The patient was placed supine on the fluoroscopic table and prepped and draped in the usual sterile fash ion. Utilizing a 21 gauge needle and sonographic and fluoroscopic guidance, access in the left basi lic vein was achieved and there is placement of a 0.018 guidewire. The vein is patent. A 4-F sheath was placed over the guidewire. The guidewire and dilator were removed and a 4-F. PICC line was plac ed through the sheath with the tip at the level of the SVC. The sheath was removed, the catheter was flushed and sutured into position. The patient was stable throughout the procedure and remained sta ble upon discharge from the Department of Radiology. The vein puncture was patent under ultrasound. A van scale image was obtained to document patency of the vein punctured. All elements of the maximal barrier technique were utilized. FLUOROSCOPY TIME: 0.1 minutes and 1 images submitted IMPRESSION: Successful PICC line placement under ultrasound and fluoroscopic guidance.
--- NOTE | 2022-06-02 21:30 | P.PN ---
Subjective Progress Note Date: 06/02/22 Principal diagnosis: Right inguinal and scrotal abscess cellulitis Patient is a 56 year old male with a past medical history significant for hypertension hyperlipidemia [place] seizure disorder GERD, patient mentioned recently he developed a pimple on the posterior scalp area which the patient said that he squeezed, subsequently developing swelling and redness to the right groin area and drainage has been diagnosed with a cellulitis and abscess. On today's evaluation that is 06/02/2022, the patient remains to be afebrile, the patient discomfort to the right groin and scrotal area has decreased in intensity and denies any further drainage, no chest pain shortness with occasional cough no abdominal pain no diarrhea Objective - Vital Signs Vital signs: Vital Signs Temp 98 F 06/02/22 10:41 Pulse 62 06/02/22 10:41 Resp 17 06/02/22 10:41 BP 134/82 06/02/22 10:41 Pulse Ox 94 L 06/02/22 10:41 FiO2 Intake & Output 06/01/22 06/02/22 06/02/22 18:59 06:59 18:59 Intake Total 1080 Output Total 1400 Balance 1080 -1400 Weight 74.707 kg Intake: Oral 1080 Output: Urine 1400 Other: Voiding Method Toilet Toilet Urinal Urinal # Voids 3 - Exam GENERAL DESCRIPTION: A middle-age male lying in bed in no distress RESPIRATORY SYSTEM: Unlabored breathing , decreased breath sounds at bases HEART: S1 S2 regular rate and rhythm , ABDOMEN: Soft , no tenderness : Right groin and scrotal area still have some induration no drainage was noticed today EXTREMITIES: No edema feet - Labs CBC & Chem 7: 06/02/22 04:22 06/01/22 08:45 Labs: Abnormal Lab Results - Last 24 Hours (Table) 06/01/22 06/02/22 Range/Units 08:45 04:22 WBC 16.7 H 13.59 H (3.8-10.6) k/uL RBC 4.07 L 4.24 L (4.30-5.90) m/uL Hgb 12.4 L 12.7 L (13.0-17.5) gm/dL Hct 38.7 L (39.0-53.0) % MCHC 31.8 L (32.0-37.0) g/dL Immature Gran # 0.05 H (0.00-0.04) X 10*3/uL Neutrophils # 11.6 H 7.88 H (1.3-7.7) k/uL Microbiology - Last 24 Hours (Table) 05/30/22 17:29 Blood Culture - Preliminary Blood No Growth after 48 hours 05/31/22 10:40 Gram Stain - Preliminary Groin Wound Culture - Preliminary Presumptive MRSA Assessment and Plan (1) Cellulitis of groin Current Visit: Yes Status: Acute Code(s): L03.314 - CELLULITIS OF GROIN S NOMED Code(s): 69954784 Plan: 1patient with right groin/scrotal area abscess and cellulitis in this patient currently with no evidence of Ayleen's gangrene, patient with a history of pimples I clinically suspicious for staphylococcal infection especially community associated MRSA 2urology has been consulted for drainage of this abscess recommending no drainage at this point 3local cultures has been finalized with MRSA, and keeping in mind extensive infection and no drainage procedure patient will benefit from outpatient IV antibiotic therapy PICC LINE will be placed continue the vancomycin Time with Patient: Less than 30
[2022-06-03] MEDS: VANCOMYCIN 1,250 MG in SODIUM CHLORIDE 0.9% 250 ML IVPB SCH ×2 (01:01→09:53)
--- NOTE | 2022-06-03 02:10 | PN ---
PROGRESS NOTE SUBJECTIVE: A 56-year-old white male, cellulitis with MRSA of the right groin. He has a PICC line. He is going to get IV vancomycin as outpatient. OBJECTIVE: CARDIOVASCULAR: S1, S2. LUNGS: Clear. GI: Soft. HEMATOLOGY: Negative Homans. : Inguinal area shows right inguinal adenopathy. Medial scrotal swelling tenderness with some yellow exudate. Positive for MRSA. Continue with PICC line with IV Lasix and discharge for couple weeks per Dr. Gayle's recommendations. MMODL / IJN: [id number] /
[2022-06-03 05:37] LABS: African American GFR (CKD) >90 (>60 ml/min/1.73 sqM); Non-African American GFR(CKD) >90 (>60 ml/min/1.73 sqM)
[2022-06-03] MEDS: PANTOPRAZOLE 40 MG TABLET PO SCH (06:48)
[2022-06-03] MEDS: PARoxetine 20 MG TAB PO SCH (09:52)
[2022-06-03] MEDS: NICOTINE 21MG/24HR PATCH TRANSDERM SCH (09:52)
[2022-06-03] MEDS: SULFAMETHOX-TMP 800-160MG 1 EACH TAB PO SCH (09:53)
[2022-06-03] MEDS: ATORVASTATIN 80 MG TAB PO SCH (09:53)
--- NOTE | 2022-06-03 10:10 | P.PN ---
Subjective Progress Note Date: 06/03/22 Principal diagnosis: Cellulitis Patient is a 56-year-old male with a past medical history significant for hypertension, hyperlipidemia, [place], seizure disorder, and GERD. He presented to the emergency department on 05/30/22 with complaints of right groin pain, swelling, and drainage. He underwent a CT abdomen/pelvis which showed evidence of edema along the right groin and thigh but no fluid collection was identified. No evidence of Ayleen's gangrene. 06/02 The patient is afebrile, vital signs stable. WBC 16.7, blood cultures negative, right groin culture growing MRSA. Upon evaluation the right groin abscess is draining spontaneously and a small amount of purulent drainage was able to be expressed. ID followoing. Objective - Vital Signs Vital signs: Vital Signs Temp 97.9 F 06/03/22 07:52 Pulse 87 06/03/22 07:52 Resp 18 06/03/22 07:52 BP 111/61 06/03/22 07:52 Pulse Ox 94 L 06/03/22 07:52 FiO2 Intake & Output 06/02/22 06/03/22 06/03/22 18:59 06:59 18:59 Output Total 1850 725 550 Balance -1850 -725 -550 Output: Urine 1850 725 550 Other: Voiding Method Toilet Urinal # Voids 1 - Exam General: Well developed, well nourished. HEENT: Head is atraumatic, normocephalic. Lungs: Respirations even and nonlabored. On room air Abdomen/GI: Soft. No guarding, rigidity, or abdominal tenderness. : Right groin/scrotum less red and less swollen today. Skin: Warm and dry Neurologic: Awake, alert and oriented times 3. CN II-XII grossly intact. No focal deficits. Psychiatric: Appropriate mood and affect. - Labs CBC & Chem 7: 06/02/22 04:22 06/03/22 04:33 Labs: Microbiology - Last 24 Hours (Table) 05/30/22 17:29 Blood Culture - Preliminary Blood No Growth after 72 hours 05/31/22 10:40 Anaerobic Culture - Preliminary Groin 05/31/22 10:40 Gram Stain - Final Groin Wound Culture - Final Methicillin resist S. aureus Assessment and Plan Assessment: The patient is afebrile, vital signs stable. WBC trending downward. Right groin culture growing MRSA. A small amount of drainage was able to be expressed from the right groin. The drainage is less purulent than yesterday. There is no evidence of cellulitis, fluctuance, or crepitus. A PICC line has been placed for outpatient IV antibiotic therapy. (1) Cellulitis of groin Status: Acute Code(s): L03.314 - CELLULITIS OF GROIN SNOMED Code(s): 52017760 Plan: - Continue antibiotics per ID's recommendations - I&D was not required at this time - Continue to observe right groin abscess drainage - Dressing changes as needed Impression and plan of care have been directed as dictated by the signing physician. Roxann Preston nurse practitioner acting as scribe for signing physician. Roxann Preston [facility] Palliative Care/Urology [facility] [id number] Email: [email or web address] I have personally seen and examined the patient, reviewed the documentation and agree with the assessment and plan as written. Number of minutes spent on the visit: 20. Lucas Gayle MD
--- NOTE | 2022-06-03 12:32 | P.PN ---
Subjective Progress Note Date: 06/03/22 Principal diagnosis: Right inguinal and scrotal abscess cellulitis Patient is a 56 year old male with a past medical history significant for hypertension hyperlipidemia [place] seizure disorder GERD, patient mentioned recently he developed a pimple on the posterior scalp area which the patient said that he squeezed, subsequently developing swelling and redness to the right groin area and drainage has been diagnosed with a cellulitis and abscess. On today's evaluation that is 06/03/2022, the patient continues to be afebrile, the patient pain to the right groin and scrotal area has decreased in intensity and the patient denies chest pain shortness with occasional cough no abdominal pain no diarrhea with antibiotic therapy Objective - Vital Signs Vital signs: Vital Signs Temp 97.9 F 06/03/22 07:52 Pulse 87 06/03/22 07:52 Resp 18 06/03/22 07:52 BP 111/61 06/03/22 07:52 Pulse Ox 94 L 06/03/22 07:52 FiO2 Intake & Output 06/02/22 06/03/22 06/03/22 18:59 06:59 18:59 Output Total 1850 725 550 Balance -1850 -725 -550 Output: Urine 1850 725 550 Other: Voiding Method Toilet Urinal # Voids 1 - Exam GENERAL DESCRIPTION: A middle-age male lying in bed in no distress RESPIRATORY SYSTEM: Unlabored breathing , decreased breath sounds at bases HEART: S1 S2 regular rate and rhythm , ABDOMEN: Soft , no tenderness : Right groin and scrotal area still have some induration no drainage was noticed today EXTREMITIES: No edema feet - Labs CBC & Chem 7: 06/02/22 04:22 06/03/22 04:33 Labs: Microbiology - Last 24 Hours (Table) 05/30/22 17:29 Blood Culture - Preliminary Blood No Growth after 72 hours 05/31/22 10:40 Anaerobic Culture - Preliminary Groin 05/31/22 10:40 Gram Stain - Final Groin Wound Culture - Final Methicillin resist S. aureus Assessment and Plan (1) Cellulitis of groin Current Visit: Yes Status: Acute Code(s): L03.314 - CELLULITIS OF GROIN SNOMED Code(s): 48456612 Plan: 1patient with right groin/scrotal area abscess and cellulitis in this patient currently with no evidence of Ayleen's gangrene, patient with a history of pimples I clinically suspicious for staphylococcal infection especially community associated MRSA 2urology has been consulted for drainage of this abscess recommending no drainage at this point 3local cultures has been finalized with MRSA, blood culture has been negative, patient is currently waiting for outpatient IV vancomycin approval from insurance company and he will benefit from it in view of extensive infection and no drainage procedure Time with Patient: Less than 30
[2022-06-03 15:31] VITALS: BP 125/75; PULSE 67; RESP 17; TEMP 97.6
[2022-06-04] MEDS ORDERED: VANCOMYCIN TROUGH DUE 1 EACH MISC MISCELLANE ONE (08:00)
== END 2022-06-03 15:35 | disposition home or self-care (01) ==
LOC: EC 16:27 → 4SSUR 19:38 → INTOOBSV 19:38 → UNDODISIN 06-03 15:35
PROVIDERS: ADMIT Family Medicine; ATTEND Family Medicine
DX: L03.314 Cellulitis of groin (principal); L02.214 Cutaneous abscess of groin; L73.2 Hidradenitis suppurativa; K21.9 Gastro-esophageal reflux disease without esophagitis; E78.5 Hyperlipidemia, unspecified; I10 Essential (primary) hypertension; B95.62 Methicillin resistant Staphylococcus aureus infection as the cause of diseases classified elsewhere; I25.2 Old myocardial infarction; G40.909 Epilepsy, unspecified, not intractable, without status epilepticus; F32.A Depression, unspecified; J98.11 Atelectasis; J44.9 Chronic obstructive pulmonary disease, unspecified; F17.200 Nicotine dependence, unspecified, uncomplicated; Z79.82 Long term (current) use of aspirin; Z79.899 Other long term (current) drug therapy; Z95.5 Presence of coronary angioplasty implant and graft; Z80.1 Family history of malignant neoplasm of trachea, bronchus and lung; Z98.1 Arthrodesis status
CPT/HCPCS: 96366 ×8; 96365 ×3; 96361; 96367; 96375; 99284; 36415; 36573; 80053; 80048; 82565; 83605; 85025 ×3; 80202; 81003; 87040; 87070; 87205; 87075; 87077; 87186; 74177; G0378 ×5; C1751; C1769; S4990 ×4; J2543; J3370 ×5; J1200; J2930; J2001; J0295 ×2; Q9967

== ENCOUNTER → 2024-07-27 | Outpatient (CLI) | payer OTHER ==
--- NOTE | 2024-07-27 12:53 | CTL ---
EXAMINATION TYPE: CT Low Dose Lung DATE OF EXAM: 07/27/2024 12:14 PM COMPARISON: None. CLINICAL INDICATION: Male, 59 years old with history of Z12.2 SCREENING LUNG CA F17.210 CURRENT SMOKE R; SMOKER, history of tobacco use. TECHNIQUE: Multiple axial non-contrast scans were obtained from approximately the lung apices through the upper abdomen. Coronal and sagittal reformatted images were obtained. Low dose technique was uti lized. MIP were created on a separate workstation and submitted for review. CT DLP: 94.9 mGycm, Automated exposure control for dose reduction was used. CT Contrast: Contrast used: None Oral contrast used: None FINDINGS: Lack of intravenous contrast and low dose technique limits the evaluation of the vascular and soft ti ssue structures. LUNGS: No evidence of pulmonary fibrosis. No evidence of focal consolidation, pneumothorax or pleural effusion. Centrilobular emphysema changes. Elevated right diaphragm. Atelectasis in the right lung b ase as a result of this elevated diaphragm. Mild paraseptal emphysema changes. Nodules: RUL: None. RML: None. RLL: None. MYRNA: None. LLL: None. AIRWAY: Patent and unremarkable. HEART: Size within normal limits. No significant coronary artery calcifications. MEDIASTINUM: No gross evidence of adenopathy. VASCULATURE: No aortic aneurysm. MUSCULOSKELETAL: No acute osseous abnormalities SOFT TISSUES/LYMPH NODES: Unremarkable. LOWER NECK: No significant findings. UPPER ABDOMEN: No significant findings. IMPRESSION: 1. No clinically significant pulmonary nodules. 2. Mild emphysema. 3. Elevated right diaphragm associated atelectasis. Correlate for phrenic nerve injury. CT LUNG RAD AND CT CHEST RECOMMENDATION: Lung-Rad 1 Negative: Continue annual screening with LDCT in 12 months. S Modifier (other clinically significant findings): None Recommend smoking cessation (if current smoker), or continuation of smoking cessation (if prior smoke r). Annual screening for lung cancer with low-dose computed tomography is recommended in adults ages 55 to 77 years who have a 30 pack-year smoking history and currently smoke or have quit within the pa st 15 years. Screening should be discontinued once a person has not smoked for 15 years or develops a health problem that substantially limits life expectancy or the ability or willingness to have curat gamaliel lung surgery. Lung rads 2021 [email or web address] [email or web address], , 07/27/2024 12:51 PM
== END | disposition home or self-care (01) ==
LOC: RADCTMAIN 11:42
PROVIDERS: ATTEND Family Medicine
DX: Z12.2 Encounter for screening for malignant neoplasm of respiratory organs (principal); F17.210 Nicotine dependence, cigarettes, uncomplicated; J43.2 Centrilobular emphysema; J98.11 Atelectasis
CPT/HCPCS: 71271